=== PATIENT | female | born 1985 | race Caucasian/White ===

== ENCOUNTER 2017-01-15 23:37 | Emergency (ER) | payer MEDICAID ==
[~2017-01-15] VITALS: Ht 157.5 cm; Wt 139.3 kg
[~2017-01-15 23:37] MED LIST: ACTOS; CIPRO500 MG; ELTROXIN0.3 MG; FERROUS SULFAT325 MG PO; FOLATE1 MG PO; IRON65 M2 PO; LEVOTHYROXINE0.3 M1; METFORMIN1000 MG; MOTRIN800 MG PO; NOVOLIN N100 U/ML SUBQ; NOVOLIN R100 U/ML SUBQ; PRENATAL VITAMI1 T10 PO; SYNTHROID0.025 MG PO; [UNRECOGNIZED DRUG - OTHER]; glipizide
[2017-01-16 00:02] VITALS: BP 100/71
--- NOTE | 2017-01-16 00:09 | NUR ---
PT TAKEN TO OF
--- NOTE | 2017-01-16 00:10 | NUR ---
Dr. Hill evaluating patient
[2017-01-16] MEDS ORDERED: cefTRIAXone 2,000 MG in DEXTROSE 5% 100 ML IV ONE (00:15)
[2017-01-16] MEDS ORDERED: KETOROLAC 30 MG/ML VIAL IVP ONE (00:15)
--- NOTE | 2017-01-16 00:15 | NUR ---
PATIENT PRESENTS TO ED WITH RIGHT EAR PAIN . PT STATES HAVING PAIN X2 DAYS . DENIES N/V/D; SKIN IS PINK/WARM/DRY; AAOX4 WITH EVEN AND STEADY GAIT; LUNGS CLEAR BL; HR EVEN AND REGULAR; PT DENIES ANY FEVER, CP, SOB, OR COUGH AT THIS TIME; PATIENT STATES PAIN OF 10/10 AT THIS TIME; VSS; PATIENT POSITIONED FOR COMFORT; HOB ELEVATED; BEDRAILS UP X2; BED DOWN. ER MD MADE AWARE OF PT STATUS.
--- NOTE | 2017-01-16 00:15 | NUR ---
PT MOVED TO BED 8
[2017-01-16] MEDS ORDERED: cefTRIAXone 2,000 MG VIAL ONE (00:52)
--- NOTE | 2017-01-16 02:15 | NUR ---
PATIENT IN BED, SLEEPING. NO RESPIRATORY DISTRESS, SOB, OR DISCOMFORT. PATIENT POSITIONED FOR COMFORT, SIDE RAILS UP X2, BED IN LOWEST POSITION. WILL CONTINUE TO MONITOR.
[2017-01-16 02:25] VITALS: BP 102/67
--- NOTE | 2017-01-16 02:25 | NUR ---
Patient discharged with v/s stable. Written and verbal after care instructions given and explained BY DR PRINCE. Patient alert, oriented and verbalized understanding of instructions. Ambulatory with steady gait. All questions addressed prior to discharge. ID band removed. Patient advised to follow up with PMD. Rx of CIPROFLOXACIN AND NAPROSYN given. Patient educated on indication of medication including possible reaction and side effects. Opportunity to ask questions provided and answered.
== END 2017-01-16 02:25 | disposition home or self-care (01) ==
LOC: MED 23:37
PROC: 3E033GC Introduction of Other Therapeutic Substance into Peripheral Vein, Percutaneous Approach (ICD-10-PCS; principal; 2017-01-15)
DX: H66.92 Otitis media, unspecified, left ear (principal); E11.9 Type 2 diabetes mellitus without complications; E07.9 Disorder of thyroid, unspecified; E66.9 Obesity, unspecified; Z68.43 Body mass index [BMI] 50.0-59.9, adult
CPT/HCPCS: 87070; 96365; 96375; 99284; J0696; J1885

== ENCOUNTER 2018-08-02 18:56 | Inpatient (IN) | payer MEDICAID ==
[~2018-08-02] VITALS: Ht 157.5 cm; Wt 156.0 kg
[~2018-08-02 18:56] MED LIST changes: +CIPR500T4; -CIPRO500 MG; -ELTROXIN0.3 MG; -FERROUS SULFAT325 MG PO; -FOLATE1 MG PO; -IRON65 M2 PO; -LEVOTHYROXINE0.3 M1; +METF100028; -METFORMIN1000 MG; -MOTRIN800 MG PO; +NOVN SUBQ; -NOVOLIN N100 U/ML SUBQ; -NOVOLIN R100 U/ML SUBQ; +NOVR SUBQ; -PRENATAL VITAMI1 T10 PO; +SYN.025 PO; -SYNTHROID0.025 MG PO; +[UNRECOGNIZED DRUG - CODE]; +[UNRECOGNIZED DRUG - CODE]
[2018-08-02 19:03] VITALS: BP 120/69
--- NOTE | 2018-08-02 19:05 | NUR ---
32 Y/O BIB SELF W/C/O ABD PAIN X 3 WEEKS IN THE R UPPER QUADRANT THAT RADIATES TO R FLANK AREA. PT REPORTS HX OF GALLSTONES, DYSURIA. PT DENIES HEMATURIA. REPORTS N/V, DENIES DIARRHEA AND CONSTIPATION. SKIN IS INTACT, PINK/WARM/DRY; AAOX4, PERRL, WITH EVEN AND STEADY GAIT; LUNGS CLEAR BL, BREATHING UNLABORED; HR EVEN AND REGULAR, BL PERIPHERAL PULSES PRESENT; BS ACTIVE X4, NO TENDERNESS TO PALPATION, NO HEPATOSPLENOMEGALLY PALPATED, RESONANT TO PERCUSSION; PT DENIES ANY FEVER, CP, SOB, OR COUGH AT THIS TIME; PT STATES 10/10 PAIN AT THIS TIME; VSS; PATIENT POSITIONED FOR COMFORT; HOB ELEVATED; BEDRAILS UP X2; BED DOWN. hx gallstones, dm, hypothyroidism rx on file
--- NOTE | 2018-08-02 20:02 | NUR ---
Dr. Hill evaluating patient at bedside.
[2018-08-02] MEDS ORDERED: NACL 0.9% 1,000 ML IV ONE ×2 (20:10→22:20)
[2018-08-02] MEDS ORDERED: ONDANSETRON 4 MG/2 ML VIAL IVP ONE (20:10)
[2018-08-02] MEDS ORDERED: MORPHINE SULFATE 4 MG/ML SYR IVP ONE ×2 (20:10→22:05)
--- NOTE | 2018-08-02 20:16 | NUR ---
Ultrasound at bedside.
--- NOTE | 2018-08-02 20:33 | NUR ---
US AT BEDSIDE
[2018-08-02 20:45] LABS: BASOPHILS # (AUTO) 0.1 K/uL (0.00-0.22); BASOPHILS % (AUTO) 0.7 % (0.0-2.0); EOSINOPHILS # (AUTO) 0.1 K/uL (0-0.4); EOSINOPHILS % (AUTO) 0.8 % (0.0-4.0); HEMATOCRIT 37.1 % (36-48); LYMPHOCYTES # (AUTO) 2.6 K/uL (2.5-16.5); LYMPHOCYTES % (AUTO) 19.9 % (20.5-51.1); MEAN CORPUSCULAR HEMOGLOBIN 26 pg (27-31); MEAN CORPUSCULAR HGB CONC 32 g/dL (33-37); MEAN CORPUSCULAR VOLUME 81.3 fL (80-94); MONOCYTES % (AUTO) 7.9 % (1.7-9.3); NEUTROPHILS # (AUTO) 9.2 K/uL (1.8-7.7); NEUTROPHILS % (AUTO) 70.7 % (42.2-75.2); PLATELET COUNT (AUTO) 309 K/uL (140-450); RED BLOOD CELL COUNT(AUTO) 4.56 MIL/uL (4.20-5.40); RED CELL DISTRIBUTION WIDTH 14.5 % (11.6-13.7)
[2018-08-02 20:46] LABS: BILIRUBIN,URINE NEGATIVE (NEGATIVE); BLOOD, URINE NEGATIVE (NEGATIVE); COLOR,URINE YELLOW (YELLOW); LEUKOCYTE ESTERASE ,URINE NEGATIVE (NEGATIVE); NITRITE, URINE NEGATIVE (NEGATIVE); UGLUCOSE 3+ (NEGATIVE)
--- NOTE | 2018-08-02 20:56 | NUR ---
PT RESTING IN BED COMFORTABLY. NAD NOTED
[2018-08-02 20:58] LABS: ANION GAP 11.2 (8-16); CARBON DIOXIDE 30.7 mmol/L (21-32); CREATININE 1.3 mg/dL (0.6-1.3); POTASSIUM 3.9 mmol/L (3.5-5.1)
[2018-08-02 21:04] LABS: ALBUMIN 2.8 g/dL (3.4-5.0); TOTAL BILIRUBIN 0.1 mg/dL (0.0-1.0)
[2018-08-02 21:50] LABS: APPEARANCE,URINE CLEAR (CLEAR)
--- NOTE | 2018-08-02 22:21 | NUR ---
DR. PRINCE MADE AWRE THAT PTS B/P 95/56. NO S/S OF DISTRESS NOTED
[2018-08-02] MEDS ORDERED: ZOLPIDEM 5 MG TAB PO PRN (22:30)
[2018-08-02] MEDS ORDERED: DEXTROSE 50% 50 ML SYR IVP PRN (22:30)
[2018-08-02] MEDS ORDERED: traMADol 50 MG TAB PO PRN (22:30)
[2018-08-02] MEDS ORDERED: LORazepam 2 MG/ML VIAL IM/IVP PRN (22:30)
[2018-08-02] MEDS ORDERED: DOCUSATE SODIUM 100 MG GELCAP PO PRN (22:30)
[2018-08-02] MEDS ORDERED: ACETAMINOPHEN 325 MG TAB PO PRN (22:30)
[2018-08-02] MEDS ORDERED: ONDANSETRON 4 MG/2 ML VIAL IM/IVP PRN (22:30)
--- NOTE | 2018-08-02 22:39 | NUR ---
XRAY AT BEDSIDE
[2018-08-02] MEDS ORDERED: GABA400C PO ×2 (22:43→23:22)
--- NOTE | 2018-08-02 22:55 | NUR ---
PT ARRIVED ON UNIT VIA GURNEY WITH ER NURSE. PT ABLE TO AMBULATE FROM GURNEY TO BED. PT IN STABLE CONDITION. PT IS AAOX4. PT IS ON RA WITH RESPIRATIONS EVEN AND UNLABORED. IV ACCESS IN L AC 20G WITH FLUID BOLUS CURRENTLY INFUSING. IV IS PATENT AND INTACT. PT SKIN IS INTACT. PT CURRENTLY C/O PAIN 12/31. PT STATES IT IS TOLERABLE AT THIS TIME. MRSA SWAB COLLECTED. ORIENTED PT TO ROOM AND USE OF CALL LIGHT. BED IS LOCKED, LOW POSITION WITH SIDE RAILS UP X2. BOARD UPDATED. CALL LIGHT IS WITHIN REACH. MD ARRIVED AT BEDSIDE TO SPEAK WITH AND EXAM PT. WILL CONTINUE TO MONITOR PT.
--- NOTE | 2018-08-02 23:04 | NUR ---
Patient will be admitted to care of DR. MAR. Admited to TELE. Will go to room 105B. Belongings list completed. Report to KRISTI CEDILLO.
[2018-08-02] MEDS ORDERED: LEVO0.2T19 PO (23:22)
[2018-08-02] MEDS ORDERED: INSU100I7 SQ (23:22)
[2018-08-02] MEDS ORDERED: APID SUBQ (23:22)
[2018-08-02 23:47] LABS: PROTHROMBIN TIME 9.4 secs (10.8-13.4)
[2018-08-02 23:51] LABS: AMYLASE 40 U/L (25-115); CHOL/HDL RATIO 3.2 (1-4.5); HDL CHOLESTEROL 51 mg/dL (40-60); LDL (CALC) 80 mg/dL (60-100); LIPASE 104 U/L (73-393); MAGNESIUM 1.7 mg/dL (1.8-2.4); THYROID STIMULATING HORMONE 9.94 uIU/mL (0.34-3.74); TRIGLYCERIDES 155 mg/dL (30-150)
[2018-08-02] MEDS ORDERED: cefTRIAXone 1,000 MG VIAL ONE (23:57)
[2018-08-03] VITALS: BP 120/68
--- NOTE | 2018-08-03 | NUR ---
LAB CALLED TO REPORT LACTIC ACID RESULT OF 2.1. DR MÁRQUEZ IS AWARE. WILL CONTINUE TO MONITOR PT.
[2018-08-03 00:06] LABS: BARBITURATE, URINE NEG. ng/ml (NEG <=200); BENZODIAZEPINE, URINE NEG. ng/mL (NEG <=200); CANNABINOID, URINE NEG. ng/mL (NEG <=50); COCAINE, URINE NEG. ng/mL (NEG <=300); OPIATE, URINE NEG. ng/mL (NEG <=2000); PHENCYCLIDINE SCREEN,URINE NEG. ng/mL (NEG <=25)
[2018-08-03] MEDS: DEXT 5% / NACL 0.45% 1,000 ML IV SCH ×3 (00:08→13:01)
--- NOTE | 2018-08-03 00:08 | NUR ---
SCHEDULED ANTIBIOTIC STARTED. PT IS TOLERATING WELL. NO SIGNS OR SYMPTOMS OF DISTRESS. WILL CONTINUE TO MONITOR.
[2018-08-03] MEDS: MORPHINE SULFATE 4 MG/ML SYR IVP PRN ×3 (01:29→20:02)
--- NOTE | 2018-08-03 01:29 | NUR ---
PT C/O PAIN. MORPHINE GIVEN. PT TOLERATED WELL. WILL CONTINUE TO MONITOR.
--- NOTE | 2018-08-03 01:55 | NUR ---
SPOKE WITH ROMULO FROM NUCLEAR MEDICINE. SHE IS PLANNING TO DO THE ORDERED HIDA SCAN AROUND 1000. PER HER REQUEST, IN ORDER TO COMPLETE THE SCAN PT NEEDS TO REMAIN NPO ORDERED AND NO OPIATES. WILL INFORM MD AND ENDORSE TO AM NURSE.
--- NOTE | 2018-08-03 02:29 | NUR ---
PT NOW RESTING COMFORTABLY IN BED. NO SIGNS OR SYMPTOMS OF DISTRESS. WILL CONTINUE TO MONITOR.
[2018-08-03] MEDS ORDERED: MAGNESIUM OXIDE 400 MG TAB PO SCH ×2 (03:00→22:30)
[2018-08-03] MEDS ORDERED: INFLUENZA VIRUS VACCINE QUAD 0.5 ML SYR IMVAC SCH (03:00)
--- NOTE | 2018-08-03 03:54 | NUR ---
ADMINISTERED SCHEDULED MEDICATION. PT TOLERATED WELL. PT UP TO BATHROOM, STANDBY ASSIST. PT STEADY, NO REPORTS OF DIZZINESS. PT NOW BACK IN BED. NO SIGNS OR SYMPTOMS OF DISTRESS.
[2018-08-03 04:00] VITALS: BP 114/55
[2018-08-03] MEDS: metroNIDAZOLE 500 MG/NS PREMIX 100 ML IV SCH ×3 (04:20→21:21)
--- NOTE | 2018-08-03 04:20 | NUR ---
ADMINISTERED SCHEDULED ANTIBIOTIC. PT TOLERATING WELL. WILL CONTINUE TO MONITOR.
[2018-08-03] MEDS ORDERED: INFLUENZA VIRUS VACCINE QUAD 0.5 ML SYR IMVAC PRN (05:10)
[2018-08-03] MEDS: BLOOD GLUCOSE MONITORING 1 DEV DEV FS SCH ×4 (05:59→21:00)
[2018-08-03] MEDS: INSULIN LISPRO SLIDING SCALE 100 UNITS/ML VIAL SUBQ PRN ×4 (06:04→21:20)
--- NOTE | 2018-08-03 06:04 | NUR ---
PT C/O PAIN. TYLENOL GIVEN. BS CHECKED, 221. INSULIN COVERAGE GIVEN PER MD ORDERS. PT TOLERATED WELL. WILL CONTINUE TO MONITOR.
[2018-08-03 06:24] LABS: BASOPHILS % (AUTO) 0.3 % (0.0-2.0); EOSINOPHILS # (AUTO) 0.1 K/uL (0-0.4); EOSINOPHILS % (AUTO) 1.2 % (0.0-4.0); HEMATOCRIT 31.6 % (36-48); HEMOGLOBIN 10.4 g/dL (12.0-16.0); LYMPHOCYTES # (AUTO) 2.5 K/uL (2.5-16.5); LYMPHOCYTES % (AUTO) 25.7 % (20.5-51.1); MEAN CORPUSCULAR HEMOGLOBIN 27 pg (27-31); MEAN CORPUSCULAR HGB CONC 33 g/dL (33-37); MEAN CORPUSCULAR VOLUME 81.7 fL (80-94); MONOCYTES # (AUTO) 0.7 K/uL (0.8-1.0); MONOCYTES % (AUTO) 7.2 % (1.7-9.3); NEUTROPHILS # (AUTO) 6.4 K/uL (1.8-7.7); NEUTROPHILS % (AUTO) 65.6 % (42.2-75.2); PLATELET COUNT (AUTO) 249 K/uL (140-450); RED BLOOD CELL COUNT(AUTO) 3.87 MIL/uL (4.20-5.40); RED CELL DISTRIBUTION WIDTH 14.6 % (11.6-13.7); WHITE BLOOD COUNT (AUTO) 9.8 K/uL (4.8-10.8)
--- NOTE | 2018-08-03 07:18 | NUR ---
ENDORSED PT TO DAY SHIFT NURSE FOR CONTINUITY OF CARE. PT IN STABLE CONDITION.
--- NOTE | 2018-08-03 07:19 | NUR ---
RECEIVED REPORT FROM PM NURSE AT BEDSIDE. PT LYING ON HER BED. DUE FOR HIDA SCAN THIS MORNING PER PM NURSE. PT IS NPO EXCEPT MEDS. PT HAS RT AC 20 G, IVF 0.5 D5% INFUSING AT 126ML/HR . PT AOX4, SELF AMBULATORY, SKIN IS INTACT. UPDATED BOARD AND INTRODUCED SELF TO PT. PLACED CALL LIGHT WITHIN PT REACH. INFORMED HER TO USE CALL LIGHT FOR ANY HELP. VERBALIZED UNDERSTANDING. WILL CONTINUE TO MONITOR PT.
[2018-08-03 07:22] LABS: ANION GAP 11.1 (8-16); CARBON DIOXIDE 25.6 mmol/L (21-32); CREATININE 0.9 mg/dL (0.6-1.3); POTASSIUM 3.7 mmol/L (3.5-5.1)
[2018-08-03 07:36] LABS: MAGNESIUM 1.6 mg/dL (1.8-2.4); PHOSPHORUS 4.9 mg/dL (2.5-4.9)
[2018-08-03 07:49] VITALS: BP 106/62
--- NOTE | 2018-08-03 08:25 | NUR ---
PATIENT HAS BEEN SCREENED AND CATEGORIZED HIGH NUTRITION RISK. PATIENT WILL BE SEEN WITHIN 1-2 DAYS OF ADMISSION. 08/03/18 08/04/[address]
[2018-08-03] MEDS ORDERED: MORPHINE SULFATE 4 MG/ML SYR IVP PRN (09:20)
--- NOTE | 2018-08-03 09:24 | NUR ---
PT WENT FOR HIDA SCAN WITH NUCLEAR [employer] TECH ON WHEEL CHAIR.. IV SITE PATENT. PT IN STABLE CONDITION.
--- NOTE | 2018-08-03 09:35 | NUR ---
ADMISSION CHART REVIEW DONE FAXED INITIAL REVIEW TO [facility] [phone] CALLED JOSÉ MIGUEL AND SHE SAID THE PATIENT IS HERS AND FAXED REVIEW. [place] [phone]
[2018-08-03] MEDS ORDERED: INSU100I7 SQ (10:19)
[2018-08-03] MEDS ORDERED: BACL10TA4 PO (10:22)
[2018-08-03] MEDS ORDERED: TRAZ-343 PO (10:24)
--- NOTE | 2018-08-03 10:30 | NUR ---
ADMINISTERED 2 MG MORPHINE TO PT IN HIDA SCAN ROOM, PT LYING COMFORTABLY IN ROOM . NUCLEAR MED TECH IN ROM. PT TO BE BROUGHT TO ROOM AFTER PROCEDURE IS DONE BY NUCLEAR MED TECH.
--- NOTE | 2018-08-03 11:23 | NUR ---
PT BACK TO ROOM. USING RESTROOM FAMILY MEMBER AT BEDSIDE. WILL CONTINUE TO MONITOR PT.
--- NOTE | 2018-08-03 11:27 | NUR ---
PER REQUEST OF LEOBARDO GARCIA, FAXED INITIAL REVIEW TO LEOBARDO GARCIA TO [phone] REF NUMBER [id number] PHONE FOR [phone]
[2018-08-03] MEDS: LACTOBACILLUS RHAMNOSUS GG 1 EACH CAP PO SCH (11:30)
[2018-08-03 12:00] VITALS: BP 116/55
--- NOTE | 2018-08-03 13:05 | NUR ---
CHECKED ON PT. LYING ON HER BED. PT AOX4, COMFORTABLE AND SPEAKING TO FAMILY AT BEDSIDE. NO DISTRESS NOTED. ADMINISTERED MEDS ORDERED. TOLERATED WELL. INFORMED PT THAT SHE STILL IS O NPO, NOT TO DRINK OR EAT ANYTHING UNTIL NEW DIET ORDER HAS BEEN RECEIVED. VERBALIZED UNDERSTANDING OF TEACHING. DR LANDRY AWARE AND ORDERED PT TO REMAIN NPO. STATE THAT DR BARNHART AWARE OF PT HIDA SCAN TEST RESULT, WAITING FOR HIS RESPONSE. ALL SAFETY MEASURE IN PLACE. WILL CONTINUE TO MONITOR PT.
--- NOTE | 2018-08-03 15:11 | NUR ---
ADMINISTERED MORPHINE TO PT FOR PAIN 05/02. STATES ITS GETTING WORSE. PT LYING ON HER BED. WILL REASSESS PAIN LEVEL IN ONE HOUR. WILL CONTINUE TO MONITOR PT.
[2018-08-03 16:00] VITALS: BP 103/86
--- NOTE | 2018-08-03 18:30 | NUR ---
CHECKED WITH PT. COMBUSTION ANALYST REPORTED PTHAVING TRAY AT HER BEDSIDE. PER DR LOVE, PT ON [facility] 60GM DIET, WILL PUT NEW DIET ORDER. OFFERED PT ANDERS . PT SITTING ON HER BED, EATING HER FOOD. NO SIGN OF DISTRESS NOTED. WILL CONTINUE TO MONITOR PT.
--- NOTE | 2018-08-03 19:20 | NUR ---
ENDORSED PT TO PM NURSE AT BEDSIDE FOR CONTINUITY OF CARE. PT IN STABLE CONDITION
--- NOTE | 2018-08-03 19:21 | NUR ---
RECEIVED SBAR REPORT FROM DAY SHIFT NURSE. PT LAYING IN BED. IV ON R AC 20GG INFUSING. PATIENT IS A&O X4. PT WITH NO SOB IS ON ROOM AIR. CARE PLAN REVIEWED WITH PATIENT SHE VERBALIZED UNDERSTANDING. ALL SAFETY MEASURES IN PLACE. CALL LIGHT IS WITHIN REACH. WILL CONTINUE TO MONITOR.
[2018-08-03 20:00] VITALS: BP 121/68
--- NOTE | 2018-08-03 20:02 | NUR ---
PT COMPLAINS OF ABD PAIN. MORPHINE GIVEN PER ORDERS. NO SOB NOTED. PT IN STABLE CONDITION. CALL LIGHT WITHIN REACH WILL CONTINUE TO MONITOR.
[2018-08-03] MEDS ORDERED: INSULIN LANTUS 100 UNITS/ML 10 ML VIAL SUBQ SCH (21:00)
--- NOTE | 2018-08-03 21:25 | NUR ---
DUE MEDICATIONS GIVEN PT TOLERATED WELL. VITAL SIGNS WITHIN NORMAL LIMITS. CALL LIGHT WITHIN NORMAL LIMITS WILL CONTINUE TO MONITOR.
[2018-08-03] MEDS ORDERED: NACL 0.9% 1,000 ML IV SCH (22:40)
[2018-08-04] VITALS: BP 118/53
[2018-08-04] MEDS ORDERED: INFLUENZA VIRUS VACCINE QUAD 0.5 ML SYR IMVAC PRN (00:10)
[2018-08-04] MEDS: HYDROcodone/APAP 5/325 MG 1 TAB TAB PO PRN ×2 (00:41→08:20)
--- NOTE | 2018-08-04 00:41 | NUR ---
PT COMPLAINS OF PAIN. 04/02 NORCO GIVEN PT TOLERATED WILL. CALL LIGHT WITHIN REACH. WILL CONTINUE TO MONITOR.
--- NOTE | 2018-08-04 01:00 | NUR ---
PT SLEEPING IN BED. NO DISTRESS NOTED. CALL LIGHT WITHIN REACH.
[2018-08-04 04:00] VITALS: BP 119/52
--- NOTE | 2018-08-04 04:00 | NUR ---
VITAL SIGNS WITHIN NORMAL LIMITS. PT DENIES PAIN AT THIS TIME. NO DISTRESS NOTED. ALL SAFETY MEASURES IN PLACE WILL CONTINUE TO MONITOR.
[2018-08-04] MEDS: metroNIDAZOLE 500 MG/NS PREMIX 100 ML IV SCH (04:43)
[2018-08-04 06:06] LABS: BASOPHILS % (AUTO) 0.4 % (0.0-2.0); EOSINOPHILS # (AUTO) 0.1 K/uL (0-0.4); EOSINOPHILS % (AUTO) 1.6 % (0.0-4.0); HEMATOCRIT 32.6 % (36-48); HEMOGLOBIN 10.7 g/dL (12.0-16.0); LYMPHOCYTES # (AUTO) 2.5 K/uL (2.5-16.5); LYMPHOCYTES % (AUTO) 34.2 % (20.5-51.1); MEAN CORPUSCULAR HEMOGLOBIN 27 pg (27-31); MEAN CORPUSCULAR HGB CONC 33 g/dL (33-37); MEAN CORPUSCULAR VOLUME 81.6 fL (80-94); MONOCYTES # (AUTO) 0.5 K/uL (0.8-1.0); MONOCYTES % (AUTO) 6.2 % (1.7-9.3); NEUTROPHILS # (AUTO) 4.3 K/uL (1.8-7.7); NEUTROPHILS % (AUTO) 57.6 % (42.2-75.2); PLATELET COUNT (AUTO) 249 K/uL (140-450); RED CELL DISTRIBUTION WIDTH 14.3 % (11.6-13.7); WHITE BLOOD COUNT (AUTO) 7.4 K/uL (4.8-10.8)
[2018-08-04] MEDS: BLOOD GLUCOSE MONITORING 1 DEV DEV FS SCH (06:13)
[2018-08-04] MEDS: INSULIN LISPRO SLIDING SCALE 100 UNITS/ML VIAL SUBQ PRN (06:13)
--- NOTE | 2018-08-04 06:25 | NUR ---
PT SLEEPING COMFORTABLY IN BED. NO DISTRESS NOTED AT THIS TIME. BED ON LOWEST POSITION CALL LIGHT WITHIN REACH.
[2018-08-04 06:43] LABS: ANION GAP 6.9 (8-16); CARBON DIOXIDE 28.8 mmol/L (21-32); CREATININE 0.7 mg/dL (0.6-1.3); POTASSIUM 3.7 mmol/L (3.5-5.1)
[2018-08-04 06:45] LABS: MAGNESIUM 1.8 mg/dL (1.8-2.4); PHOSPHORUS 4.1 mg/dL (2.5-4.9)
[2018-08-04] MEDS ORDERED: LEVOTHYROXINE 0.1 MG TAB PO SCH (07:05)
--- NOTE | 2018-08-04 07:15 | NUR ---
ENDORSED PT TO DAY SHIFT NURSE VIA SBAR. PT IN STABLE CONDITION. ALL SAFETY MEASURES IN PLACE.
--- NOTE | 2018-08-04 07:20 | NUR ---
RECEIVED REPORT FROM VIDEO GAME PROGRAMMER NURSE, PT IS SLEEPING IN BED BUT EASILY AWAKEN, PT IS AAOX4, AMBULATORY, IV IS ON THE RIGHT AC, PATENT, INTACT, FLUSHING WELL, NO S/S OF RESPIRATORY DISTRESS OR DISCOMFORT NOTED, SKIN IS INTACT, DISCUSSED PLAN OF CARE WITH PT, PT VERBALIZED UNDERSTANDING, CALL LIGHT IS WITHIN REACH, WILL CONTINUE TO MONITOR.
[2018-08-04 07:21] LABS: T4 (THYROXINE) 9.6 ug/dL (4.5-12.0)
[2018-08-04 08:00] VITALS: BP 114/78
[2018-08-04] MEDS ORDERED: LEVOTHYROXINE PO SCH ×2 (08:00)
[2018-08-04] MEDS: LACTOBACILLUS RHAMNOSUS GG 1 EACH CAP PO SCH (08:11)
[2018-08-04] MEDS ORDERED: DOCU-299 PO (08:21)
[2018-08-04] MEDS ORDERED: ACET-2869 PO (08:21)
[2018-08-04] MEDS ORDERED: ACET-2858 PO (08:42)
--- NOTE | 2018-08-04 10:00 | NUR ---
CM NOTE CONSULTATION REPORT AND DISCHARGE SUMMARY FAXED TO LEOBARDO GARCIA [phone] PH# [phone] AND TO [facility] [phone] N[place] PH# [phone].
--- NOTE | 2018-08-04 11:10 | NUR ---
DISCHARGE INSTRUCTIONS GIVEN, IV REMOVED, CATHETER TIP INTACT, ID WRIST BANDS ALSO REMOVED. PT STABLE UPON DISCHARGE.
[2018-08-05] MEDS ORDERED: LEVOTHYROXINE PO SCH ×2 (06:30)
== END 2018-08-04 11:10 | disposition home or self-care (01) ==
LOC: MED 18:56 → MTU 22:29
PROVIDERS: ADMIT General Practice; ATTEND General Practice
PROC: 3E0234Z Introduction of Serum, Toxoid and Vaccine into Muscle, Percutaneous Approach (ICD-10-PCS; principal; 2018-08-04)
DX: K80.20 Calculus of gallbladder without cholecystitis without obstruction (principal); N17.0 Acute kidney failure with tubular necrosis; E43 Unspecified severe protein-calorie malnutrition; E11.40 Type 2 diabetes mellitus with diabetic neuropathy, unspecified; R65.10 Systemic inflammatory response syndrome (SIRS) of non-infectious origin without acute organ dysfunction; E11.65 Type 2 diabetes mellitus with hyperglycemia; E66.01 Morbid (severe) obesity due to excess calories; K76.0 Fatty (change of) liver, not elsewhere classified; E03.9 Hypothyroidism, unspecified; E83.42 Hypomagnesemia; E78.1 Pure hyperglyceridemia; F43.9 Reaction to severe stress, unspecified; Z79.899 Other long term (current) drug therapy; Z79.4 Long term (current) use of insulin; Z83.3 Family history of diabetes mellitus; Z82.49 Family history of ischemic heart disease and other diseases of the circulatory system; Z87.891 Personal history of nicotine dependence; Z23 Encounter for immunization; Z68.44 Body mass index [BMI] 60.0-69.9, adult
CPT/HCPCS: 36415; 71045; 76705; 78445; 80048; 80053; 80305; 81003; 81025; 82140; 82150; 82948; 83036; 83605; 83690; 83735; 83880; 84100; 84134; 84436; 84443; 85025; 85610; 85730; 87040; 87081; 87086; 90658; 93005; 96361; 96374; 96375; 99285; G0482; J0696; J1815; J2270; J2405; J3490; J7030; J7060; Q0092

== ENCOUNTER 2019-07-30 19:40 | Inpatient (IN) | payer MEDICAID ==
[~2019-07-30] VITALS: Ht 160 cm; Wt 172.4 kg
[~2019-07-30 19:40] MED LIST changes: -ACTOS; +BACL10TA4 PO; -CIPR500T4; +DOCU-299 PO; +HYDR-5092 PO; +INSU100I7 SQ; +LEVO0.2T19 PO; -METF100028; -NOVN SUBQ; -NOVR SUBQ; -SYN.025 PO; +TRAZ-343 PO; -[UNRECOGNIZED DRUG - CODE]; -[UNRECOGNIZED DRUG - CODE]; -[UNRECOGNIZED DRUG - OTHER]; -glipizide
[2019-07-30 20:11] VITALS: BP 129/64
--- NOTE | 2019-07-30 20:23 | NUR ---
PT AMBULATED TO ER BED 06
--- NOTE | 2019-07-30 20:23 | NUR ---
Pt placed on 5150 hold for danger to self. Wayne Wolff EMT at bedside. Continue to monitor.
--- NOTE | 2019-07-30 20:45 | NUR ---
33Y FEMALE, BIB SISTER TO ED DUE TO SUICIDAL IDEATION, PER REPORT INGESTED 20 SLEEPING PILLS ABOUT 1HR AGO, DROWSY BUT RESPONDS TO QUESTIONS, PT AAO TO NAME, PLACE, TIME AND LOCATION. ASKED PATIENT WHAT MEDICATIONS SHE TOOK BUT UNABLE TO PROVIDE CORRECT NAME, PT REPORTED HAVING RT LOWER ABD PAIN THAT RADIATES TO BACK, SHE ALSO REPORTED GOING TO ED [place] ABOUT 1 WEEK AGO AND WAS GIVEN PAIN MEDICATION AND ANTIBIOTICS BUT UNABLE TO NAME THE MEDICATIONS PRESCRIBED AT THIS TIME. EDMD MADE AWARE, 1:1 SITTER AT BEDSIDE, BED LOCKED IN LOWEST POSITION, SIDERAILS UPX2, WILL CONTINUE TO MONITOR CLOSELY.
--- NOTE | 2019-07-30 21:28 | NUR ---
POISON CONTROL CALLED SPOKE WITH NEIL , REPORTED PT CONDITION AND TURN OF EVENTS, WITH RECOMMENDATIONS TO CHECK FOR LABS: TYLENOL, ASPIRIN, ETOH, CBC, CMP, THYROID PANEL AND EKG, EDMD MADE AWARE, WILL CONTINUE TO MONITOR CLOSELY.
[2019-07-30 21:35] LABS: BASOPHILS # (AUTO) 0.1 K/uL (0.00-0.22); BASOPHILS % (AUTO) 0.8 % (0.0-2.0); EOSINOPHILS # (AUTO) 0.1 K/uL (0-0.4); EOSINOPHILS % (AUTO) 0.5 % (0.0-4.0); HEMATOCRIT 39.2 % (36-48); HEMOGLOBIN 12.8 g/dL (12.0-16.0); LYMPHOCYTES # (AUTO) 2.5 K/uL (2.5-16.5); LYMPHOCYTES % (AUTO) 25.1 % (20.5-51.1); MEAN CORPUSCULAR HEMOGLOBIN 28 pg (27-31); MEAN CORPUSCULAR HGB CONC 33 g/dL (33-37); MEAN CORPUSCULAR VOLUME 86.3 fL (80-94); MONOCYTES # (AUTO) 0.5 K/uL (0.8-1.0); MONOCYTES % (AUTO) 4.8 % (1.7-9.3); NEUTROPHILS # (AUTO) 6.9 K/uL (1.8-7.7); NEUTROPHILS % (AUTO) 68.8 % (42.2-75.2); PLATELET COUNT (AUTO) 258 K/uL (140-450); RED BLOOD CELL COUNT(AUTO) 4.55 MIL/uL (4.20-5.40); WHITE BLOOD COUNT (AUTO) 10.1 K/uL (4.8-10.8)
[2019-07-30 22:10] LABS: ANION GAP 12.6 (8-16); CARBON DIOXIDE 26.2 mmol/L (21-32); CREATININE 1.2 mg/dL (0.6-1.3); POTASSIUM 3.8 mmol/L (3.5-5.1); TOTAL BILIRUBIN 0.4 mg/dL (0.0-1.0)
[2019-07-30 22:14] LABS: SALICYLATE < 2.8 mg/dL (2.8-20.0)
[2019-07-30] MEDS ORDERED: INSULIN REGULAR, HUMAN 100 UNIT/ML VIAL IVP ONE (22:15)
[2019-07-30] MEDS ORDERED: NACL 0.9% 1,000 ML IV ONE (22:15)
[2019-07-30] MEDS ORDERED: ACETYLCYSTEINE 20% (200 MG/ML) 200 MG/ML VIAL PO ONE (22:20)
--- NOTE | 2019-07-30 22:30 | NUR ---
PT SPEAKING WITH TELEPSYCH AT THIS TIME
--- NOTE | 2019-07-30 22:44 | NUR ---
Spoke to Dr. Starr. He states d/t pt's condition and continued desire to harm self, it is too soon to release the 5150 hold. Pt to remain on 5150 hold. Alternating sitters at bedside, Wade Funes. Continue to monitor. Addendum: 07/31/19 at 0500 by MED Spoke to Dr. Starr from [employer]. He states d/t pt's condition and continued desire to harm self, it is too soon to release the 5150 hold. Pt to remain on 5150 hold. Alternating sitters at bedside, Wade Funes. Continue to monitor.
[2019-07-30] MEDS ORDERED: ACETYLCYSTEINE 20% (200 MG/ML) 200 MG/ML VIAL ONE (22:51)
[2019-07-31] VITALS (10 sets, daily range): BP systolic 90–123; BP diastolic 53–92
[2019-07-31] MEDS ORDERED: ACETYLCYSTEINE 20% (200 MG/ML) 200 MG/ML VIAL PO SCH
--- NOTE | 2019-07-31 | NUR ---
PT IN BED ASLEEP, EASY TO AROUSE, ABLE TO MAKE NEEDS KNOWN, VSS AT THIS TIME, WILL CONTINUE TO MONITOR CLOSELY. 1:1 SITTER AT BEDSIDE.
[2019-07-31 00:13] LABS: BARBITURATE, URINE NEG. ng/ml (NEG <=200); BENZODIAZEPINE, URINE NEG. ng/mL (NEG <=200); CANNABINOID, URINE NEG. ng/mL (NEG <=50); COCAINE, URINE NEG. ng/mL (NEG <=300); OPIATE, URINE NEG. ng/mL (NEG <=2000); PHENCYCLIDINE SCREEN,URINE NEG. ng/mL (NEG <=25)
[2019-07-31] MEDS ORDERED: INSULIN REGULAR, HUMAN 100 UNIT/ML VIAL IVP ONE (01:00)
[2019-07-31] MEDS ORDERED: NACL 0.9% 1,000 ML IV ONE (01:00)
--- NOTE | 2019-07-31 02:00 | NUR ---
PATIENT IN BED ASLEEP, EASY TO AROUSE, ABLE TO MAKE NEEDS KNOWN, VSS AT THIS TIME, WILL CONTINUE TO MONITOR CLOSELY, 1:1 SITTER AT BEDSIDE.
[2019-07-31] MEDS ORDERED: ACETYLCYSTEINE 20% (200 MG/ML) 200 MG/ML VIAL ONE ×2 (03:25→03:38)
--- NOTE | 2019-07-31 04:00 | NUR ---
PT GIVEN ACETYLCYSTEINE, THIRD DOSE: 10,000MG PO MIXED IN JUICE PER DR RAYA Q4 HR ORDERS. PT TOLLERATED WELL, SWALLOWED WITHOUT DIFFICULTIES. VSS. CONTINUE TO MONITOR.
--- NOTE | 2019-07-31 04:15 | NUR ---
PT AMBULATED TO RESTROOM WITH STEADY GAIT. ACCOMPANIED BY DONNY RN.
--- NOTE | 2019-07-31 04:30 | NUR ---
PT AWAKE. STATES TAKING FULL BOTTLE OF TYLENOL PM AT HOME AND THE REMAINS OF HER SON'S CLONIPINE WITH INTENT TO HARM SELF. SHE HAS DM AND HAS NOT BEEN TAKING CARE OF HER OWN NEEDS. SHE IS OVERWHELMED AT HOME AND FEEL'S LIKE SHE DID NOT HAVE ANOTHER WAY OUT. PT IS CALM AND RESTING IN BED WITH EYES OPEN. PT EXPRESSING GRATIFICATION FOR PROVIDING HER WITH THE HELP SHE NEEDS. VSS. SITTER AT CHAIR SIDE. CONTINUE TO MONITOR.
[2019-07-31] MEDS ORDERED: INSU100S5 IJ (04:47)
[2019-07-31] MEDS ORDERED: LEVO0.3T5 PO (04:48)
[2019-07-31] MEDS ORDERED: DOCUSATE SODIUM 100 MG GELCAP PO PRN (05:15)
[2019-07-31] MEDS ORDERED: ONDANSETRON 4 MG/2 ML VIAL IM/IVP PRN (05:15)
--- NOTE | 2019-07-31 06:00 | NUR ---
PT ASLEEP IN BED, EASY TO AROUSE, ABLE TO VERBALIZE NEEDS, VSS AT THIS TIME. 1:1 SITTER AT BEDSIDE.
--- NOTE | 2019-07-31 06:07 | NUR ---
XRAY AT BEDSIDE
[2019-07-31 06:28] LABS: PROTHROMBIN TIME 10.7 secs (10.8-13.4)
[2019-07-31 06:32] LABS: BASOPHILS % (AUTO) 0.4 % (0.0-2.0); EOSINOPHILS # (AUTO) 0.1 K/uL (0-0.4); EOSINOPHILS % (AUTO) 0.5 % (0.0-4.0); HEMATOCRIT 36.5 % (36-48); HEMOGLOBIN 12.1 g/dL (12.0-16.0); LYMPHOCYTES # (AUTO) 2.2 K/uL (2.5-16.5); LYMPHOCYTES % (AUTO) 20.8 % (20.5-51.1); MEAN CORPUSCULAR HEMOGLOBIN 28 pg (27-31); MEAN CORPUSCULAR HGB CONC 33 g/dL (33-37); MEAN CORPUSCULAR VOLUME 85.2 fL (80-94); MONOCYTES # (AUTO) 0.5 K/uL (0.8-1.0); MONOCYTES % (AUTO) 5.1 % (1.7-9.3); NEUTROPHILS # (AUTO) 7.7 K/uL (1.8-7.7); NEUTROPHILS % (AUTO) 73.2 % (42.2-75.2); PLATELET COUNT (AUTO) 251 K/uL (140-450); RED BLOOD CELL COUNT(AUTO) 4.29 MIL/uL (4.20-5.40); RED CELL DISTRIBUTION WIDTH 13.6 % (11.6-13.7); WHITE BLOOD COUNT (AUTO) 10.6 K/uL (4.8-10.8)
[2019-07-31 06:41] LABS: ANION GAP 18.6 (8-16); CARBON DIOXIDE 20.2 mmol/L (21-32); POTASSIUM 3.8 mmol/L (3.5-5.1)
--- NOTE | 2019-07-31 07:17 | NUR ---
BEDSIDE REPORT FOR ENDORSEMENT OF CARE GIVEN TO NGUYEN RICCI.
[2019-07-31] MEDS: NACL 0.9% 1,000 ML IV SCH ×2 (07:30→14:14)
--- NOTE | 2019-07-31 07:34 | NUR ---
Dr. David Villalpando evaluating patient at bedside.
--- NOTE | 2019-07-31 08:00 | NUR ---
ON DUTY RECEIVED THIS PT A/OX3. LYING ON BED QUIETLY. PT WAS ADMITED TO ICU. WAITING FOR. BED. NO ACUTE DISTRESS. VS STABLE. MUCOMUST WAS REQESTED FROM PHARMACY. BUT NO DELIVERED YET. PT WENT TO BATH IN STEADY GAIT. SECOND URINE SAMPLE OBTAINED AND SENT TO LAB @3674.
--- NOTE | 2019-07-31 09:16 | NUR ---
CALL TO DR HADLEY REGARDING PT BLOOD SUGAR AND CONCERNS ABOUT MUCOMYST. ORDERS TO FOLLOW AND DR HADLEY TO CALL BACK.
[2019-07-31] MEDS ORDERED: DEXTROSE 50% 50 ML SYR IVP PRN (09:25)
--- NOTE | 2019-07-31 09:40 | NUR ---
PT WAS ADMITED TO ICU. BED 6. PT WAS SENT TO ICU WITH EMT LONNY. ONE MORE IVSL 22G STARTED @RA. NS0.95 CHANGED TO THAT PORT, VBG WAS DRAWN BY THE WAY. REPORT ENDORSED BEDSIDE TO HEATING UNIT MECHANIC.
[2019-07-31] MEDS ORDERED: DEXTROSE 5% IV SCH (10:00)
[2019-07-31] MEDS ORDERED: ACETYLCYSTEINE IV SCH ×2 (10:00→17:00)
--- NOTE | 2019-07-31 10:00 | NUR ---
RECEIVED PT FROM SUDHIR MARTIN, SHE IS DROWSY , ABLE TO GURNEY TO BED FOLLOW COMMAND,SKIN WARM DRY TO TOUCH. ON ROOM AIR , IV SITE HAS #20 AT RT. AC HAS NO BL. RETURN. RESTARTED ON RT ARM.
--- NOTE | 2019-07-31 10:15 | NUR ---
BLOOD GLUCOSE ACCUE CHECK 448. DR RAMÍREZ NOTIFIED ORDERED TO GIVE 12 UNIT REG,INSURIN COVER ORDER.
--- NOTE | 2019-07-31 10:20 | NUR ---
PATIENT REMAIN SLEEPY, THE POISON CONTROL REPORTED BY ER.
[2019-07-31] MEDS ORDERED: INSULIN REGULAR, HUMAN 100 UNIT/ML VIAL IVP SCH (10:27)
[2019-07-31] MEDS: ACETYLCYSTEINE IV SCH ×2 (11:03→14:00)
[2019-07-31] MEDS: NACL 0.45% IV SCH ×2 (11:03→14:00)
[2019-07-31] MEDS: INSULIN LISPRO SLIDING SCALE 100 UNITS/ML VIAL SUBQ PRN ×3 (11:05→20:52)
[2019-07-31] MEDS: BLOOD GLUCOSE MONITORING 1 DEV DEV FS SCH ×3 (11:30→20:49)
--- NOTE | 2019-07-31 11:45 | NUR ---
BLOOD GLUCOSE 362 DR. NICE NOTIFIED REG INSULIN COVER ORDERED.
[2019-07-31] MEDS ORDERED: ACETYLCYSTEINE IV PER PHARMACY 1 EA MISC MC PRN (12:00)
[2019-07-31 14:04] LABS: MAGNESIUM 1.7 mg/dL (1.8-2.4); PHOSPHORUS 3.2 mg/dL (2.5-4.9)
--- NOTE | 2019-07-31 14:05 | NUR ---
UNABLE TO OBTAIN ABG AT THIS TIME PT WANTS TO WAIT TIL LATER WILL RETRY LATER
[2019-07-31 14:06] LABS: CHOL/HDL RATIO 3.6 (1-4.5)
[2019-07-31 14:07] LABS: FREE T4 (FREE THYROXINE) 0.75 ng/dL (0.76-1.46)
--- NOTE | 2019-07-31 15:05 | NUR ---
PATIENT HAS BEEN SCREENED AND CATEGORIZED HIGH NUTRITION RISK. PATIENT WILL BE SEEN WITHIN 1-2 DAYS OF ADMISSION. 07/31/19-08/01/[address]
--- NOTE | 2019-07-31 15:38 | NUR ---
COULD NOT OBTAIN ABG TWO ATTEMPTS WERE MADE AND NOT ABLE TO GET WILL ENDORSE TO NOC SHIFT
--- NOTE | 2019-07-31 15:46 | NUR ---
INFORMED DR.SADIQI CROFT WAS NOT OBTAINED AT THIS TIME, SHE WILL ORDER PIC LINE I TOLD HER I WOULD ENDORSE TO QA TESTER
[2019-07-31 16:01] LABS: THYROID STIMULATING HORMONE 148.13 uIU/mL (0.34-3.74)
--- NOTE | 2019-07-31 16:50 | NUR ---
BL. GLUCOSE 85 DR. HADLEY AWARE CHANGED IV FLUID TO D5 NS 160 ML/HR.
[2019-07-31] MEDS ORDERED: NACL 0.45% IV SCH (17:00)
[2019-07-31 17:44] LABS: PROTHROMBIN TIME 10.4 secs (10.8-13.4)
[2019-07-31] MEDS: DEXT 5% /NACL 0.9% 1,000 ML IV SCH ×2 (17:58→23:45)
[2019-07-31] MEDS ORDERED: MAGNESIUM OXIDE 400 MG TAB PO SCH (18:00)
--- NOTE | 2019-07-31 18:00 | NUR ---
UP ON ON RECLINE CHAIR , SHE APPEAR IN GOOD SPIRIT BUT C/O NUMBNESSON RT HAND.
--- NOTE | 2019-07-31 19:14 | NUR ---
RECEIVED REPORT FROM AM SHIFT. PT A/O X4. ABLE TO VERBALIZE NEEDS. RESPONDS TO VERBAL AND TACTILE STIMULI. NO SIGNS OF ACUTE DISTRESS. ON MUCOMYST 65ML AND D5NS @ 160. ROOM AIR. LUNG SOUNDS CLEAR BILAT. SKIN INTACT. IV SITE R AC 20G AND R FA 22 G. BED IN LOWEST POSITION. UP IN CHAIR AT THIS TIME. WILL CONTINUE TO MONITOR.
--- NOTE | 2019-07-31 19:15 | NUR ---
OOB IN CHAIR, FAMILY AT THE SITE REPORT GIVE TO COREY.
[2019-07-31 21:15] LABS: APPEARANCE,URINE CLEAR (CLEAR); BILIRUBIN,URINE NEGATIVE (NEGATIVE); BLOOD, URINE NEGATIVE (NEGATIVE); COLOR,URINE YELLOW (YELLOW); LEUKOCYTE ESTERASE ,URINE NEGATIVE (NEGATIVE); NITRITE, URINE NEGATIVE (NEGATIVE); UGLUCOSE 3+ (NEGATIVE)
--- NOTE | 2019-07-31 21:17 | NUR ---
DR. LEMUS AT BEDSIDE AT THIS TIME UPDATED ON PTS CURRENT CONDITION. WILL CONTINUE TO FOLLOW UP ANY ADDITIONAL ORDERS.
[2019-08-01] VITALS (9 sets, daily range): BP systolic 95–120; BP diastolic 53–75
--- NOTE | 2019-08-01 | NUR ---
FAMILY AT BEDSIDE AT THIS TIME. NO SIGNS OF ACUTE DISTRESS NOTED. CONTINUE TO MONITOR.
--- NOTE | 2019-08-01 01:15 | NUR ---
PT AT CT SCAN AT THIS TIME.
--- NOTE | 2019-08-01 02:23 | NUR ---
DR. LEMUS AT BEDSIDE AT THIS TIME. UPDATED ON CURRENT CT RESULTS. NO SIGNS OF ACUTE DISTRESS NOTED.
--- NOTE | 2019-08-01 02:31 | NUR ---
PT C/O GENERALIZED PAIN AT THIS TIME. DR. LEMUS MADE AWARE. WILL CONTINUE TO FOLLOW UP ANY ADDITIONAL ORDERS.
[2019-08-01] MEDS ORDERED: MORPHINE SULFATE 2 MG/ML SYR IVP ONE (02:55)
[2019-08-01 03:35] LABS: PROTHROMBIN TIME 10.4 secs (10.8-13.4)
[2019-08-01 03:41] LABS: CARBON DIOXIDE 20.3 mmol/L (21-32); POTASSIUM 3.3 mmol/L (3.5-5.1)
[2019-08-01 03:45] LABS: MAGNESIUM 1.6 mg/dL (1.8-2.4); PHOSPHORUS 2.6 mg/dL (2.5-4.9)
[2019-08-01] MEDS: LEVOTHYROXINE 0.1 MG TAB PO SCH (06:02)
[2019-08-01 06:08] LABS: T4 (THYROXINE) 5.8 ug/dL (4.5-12.0)
[2019-08-01 06:10] LABS: HEMOGLOBIN 11.6 g/dL (12.0-16.0); MEAN CORPUSCULAR HEMOGLOBIN 28 pg (27-31); MEAN CORPUSCULAR HGB CONC 32 g/dL (33-37); MEAN CORPUSCULAR VOLUME 86.9 fL (80-94); RED CELL DISTRIBUTION WIDTH 14.3 % (11.6-13.7)
[2019-08-01 06:11] LABS: BASOPHILS % (AUTO) 0.6 % (0.0-2.0); EOSINOPHILS # (AUTO) 0.1 K/uL (0-0.4); EOSINOPHILS % (AUTO) 1.1 % (0.0-4.0); LYMPHOCYTES # (AUTO) 2.2 K/uL (2.5-16.5); LYMPHOCYTES % (AUTO) 27.5 % (20.5-51.1); MONOCYTES # (AUTO) 0.4 K/uL (0.8-1.0); MONOCYTES % (AUTO) 5.6 % (1.7-9.3); NEUTROPHILS # (AUTO) 5.2 K/uL (1.8-7.7); NEUTROPHILS % (AUTO) 65.2 % (42.2-75.2); PLATELET COUNT (AUTO) 277 K/uL (140-450)
--- NOTE | 2019-08-01 06:20 | NUR ---
DR. LANDAVERDE AT BEDSIDE AT THIS TIME. UPDATED ON PTS CURRENT CONDITION. WILL CONTINUE TO FOLLOW UP ANY ADDITIONAL ORDERS.
--- NOTE | 2019-08-01 07:04 | NUR ---
RECEIVED BEDSIDE REPORT FROM ISHA DRIVER MANAGER RN, FOR CONTINUITY OF CARE. PATIENT IS AAOX4, LETHARGIC. PATIENT SKIN IS WARM, DRY, AFEBRILE, INTACT. PATIENT HAS PERIPHERAL IV SITE TO RAC, 20G, AND RFA, 22G, BOTH ASYMPTOMATIC AND PATENT. PATIENT IS ON ROOM AIR, BREATHING EVEN AND UNLABORED. SR ON MONITOR, DENIES PAIN. HOB IS SEMI GABRIEL, SIDE RAILS UP 3X, BED LOCKED IN LOW POSITION. CALL LIGHT WITHIN REACH. NO SIGNS OF DISTRESS, WILL CONTINUE TO MONITOR
--- NOTE | 2019-08-01 07:14 | NUR ---
ENDORSED CARE TO INCOMING SHIFT RN FOR CONTINUITY OF CARE.
[2019-08-01 07:25] LABS: BILIRUBIN,DIRECT 0.1 mg/dL (0.0-0.3); TOTAL BILIRUBIN 0.3 mg/dL (0.0-1.0)
[2019-08-01 07:26] LABS: ALBUMIN 2.5 g/dL (3.4-5.0)
[2019-08-01] MEDS: BLOOD GLUCOSE MONITORING 1 DEV DEV FS SCH ×4 (07:44→21:01)
--- NOTE | 2019-08-01 07:48 | NUR ---
PROVIDED PATIENT WITH BREAKFAST TRAY, STATES TO SET ASIDE BY BEDSIDE SINCE SHE STILL FEELS SLEEPY.
[2019-08-01] MEDS ORDERED: POTASSIUM CHLORIDE 40 MEQ, LIDOCAINE MPF 1% 25 MG in NACL 0.9% 250 ML IV SCH (08:00)
[2019-08-01] MEDS ORDERED: MAGNESIUM OXIDE 400 MG TAB PO SCH (08:00)
--- NOTE | 2019-08-01 08:04 | NUR ---
DR. CONTRERAS AND RESIDENT PHYSICIANS AT BEDSIDE, UPDATED ON PATIENT'S CONDITION.
[2019-08-01] MEDS: NACL 0.9% 1,000 ML IV SCH ×4 (08:09→22:20)
[2019-08-01] MEDS: INSULIN LISPRO SLIDING SCALE 100 UNITS/ML VIAL SUBQ PRN ×4 (08:11→21:03)
--- NOTE | 2019-08-01 09:59 | NUR ---
DR. MATHIS IS HERE TO SEE AND EXAMINE PATIENT.
--- NOTE | 2019-08-01 11:00 | NUR ---
DR. STONER IS HERE TO SEE PATIENT, UPDATED ON PATIENT'S CONDITION.
--- NOTE | 2019-08-01 11:19 | NUR ---
RAZ FROM POISON CONTROL CALLED, UPDATED ON PATIENT'S CONDITION. STATES THAT PATIENT DOES NOT NEED ANYMORE MUCOMYST SINCE THE ACETAMINOPHEN LAB SHOWS LESS THAN 0.5 AND LABS ARE STABLE.
--- NOTE | 2019-08-01 11:37 | NUR ---
PATIENT VOIDED VIA BEDPAN, CLEANED AND REPOSITIONED FOR COMFORT.
--- NOTE | 2019-08-01 11:51 | NUR ---
DESIGN PRINTER BALLOON AT BEDSIDE PROVIDING DIABETIC SELF CARE AND DIET EDUCATION.
--- NOTE | 2019-08-01 11:52 | NUR ---
PROVIDED PATIENT WITH LUNCH TRAY, NO SIGNS OF DISTRESS NOTED.
--- NOTE | 2019-08-01 12:45 | NUR ---
PT RECIEVED FROM ICU. REPORT RECEIVED FROM KURT OVER THE PHONE. PT HAS 22G IV TO R FOREARM. VITALS: BP 117/75, HR 85, RR 18, SPO2 97% ON ROOM AIR, PAIN 0/10, TEMP 97.7. PT BREATHING IS EVEN AND UNLABORED. NO SIGNS OF ACUTE DISTRESS. WILL CONTINUE CARE. Addendum: 08/01/19 at 1505 by Tata Yates RN TIME PT RECEIVED IS 1445. ABOVE TIME IS INCORRECT
--- NOTE | 2019-08-01 14:00 | NUR ---
PT IN BED SLEEPING. PT HAS 1:1 SITTER. BREATHING EVEN AND UNLABORED ON ROOM AIR. NO SIGNS OF ACUTE DISTRESS AT THIS TIME.
[2019-08-01 14:53] LABS: FREE T4 (FREE THYROXINE) 0.68 ng/dL (0.76-1.46)
--- NOTE | 2019-08-01 15:37 | NUR ---
08/01/19 RD INITIAL ASSESSMENT COMPLETED PLEASE REFER TO NUTRITION ASSESSMENT UNDER CARE ACTIVITY FOR ESTIMATED NUTRITIONAL NEEDS. [facility]. [facility] TOLERATED 2. RD PROVIDED DIABETES NUTRITION EDUCATION. PT ACCEPTED 3. RD TO FOLLOW-UP 5-7 DAYS, LOW RISK PETER BELLO RD
--- NOTE | 2019-08-01 16:00 | NUR ---
PT ASKED THAT I CALL HER SISTER AND INFORM HER THAT SHE IS NOW ON MST AND NO LONGER IN ICU. PT SISTER, VANE SEWELL , CALLED AND INFORMED OF PT BEING ON MST. PT AND SISTER RECEIVED TEACHING ABOUT CHILDREN ON UNIT AND HOW IT IS NOT RECOMMENDED BECAUSE PT STATED SHE WANTED TO CHILDREN, AGE 5 AND AGE7, TO VISIT.
[2019-08-01 16:58] LABS: THYROID STIMULATING HORMONE 159.46 uIU/mL (0.34-3.74)
--- NOTE | 2019-08-01 17:06 | NUR ---
PT IN BED. AAOX4. PT BREATHING EVEN AND UNLABORED ON ROOM AIR. NO SIGNS OF ACUTE DISTRESS. WILL CONTINUE TO ASSESS FOR CHANGES IN CONDITION.
--- NOTE | 2019-08-01 18:10 | NUR ---
PT IN BED. AAOX4. PT BREATHING EVEN AND UNLABORED ON ROOM AIR. PT HAS 1:1 SITTER. DINNER AT BEDSIDE. NO SIGNS OF ACUTE DISTRESS. WILL CONTINUE TO ASSESS FOR CHANGES IN CONDITION.
--- NOTE | 2019-08-01 19:00 | NUR ---
RECEIVED BEDSIDE REPORT FROM DAY SHIFT NURSE. PATIENT IS AWAKE, ALERT, AND COOPERATIVE. RESPIRATION EVEN UNLABORED ON ROOM AIR. NO DISTRESS NOTED. SKIN IS WARM AND DRY. IV PATENT AND INTACT. PATIENT IS ON HOLD FOR 5150 SITTER AT BEDSIDE. PLAN OF CARE WAS DISCUSSED. ALL SAFETY MEASURE IN PLACE. BED IS AT LOW POSITION. CALL LIGHT WITHIN REACH AND VERBALIZES ITS USE. WILL CONTINUE TO MONITOR.
--- NOTE | 2019-08-01 19:10 | NUR ---
PT ENDORSED TO NIGHT RN. 24 G IV TO R FOREARM WITH NS AT 160 ML/HR. PT AMBULATED TO RESTROOM. PT STABLE AT REPORT.
--- NOTE | 2019-08-01 20:00 | NUR ---
INITIAL ASSESSMENT DONE. VITALS WERE TAKEN. PATIENT IN STABLE CONDITION. SITTER AT BEDSIDE. WILL CONTINUE TO MONITOR.
--- NOTE | 2019-08-01 21:00 | NUR ---
ALL SCHEDULED MEDS WERE GIVEN PER ORDER. NO ASE NOTED. WILL CONTINUE TO MONITOR.
--- NOTE | 2019-08-01 22:30 | NUR ---
PATIENT SLEEPING RESPIRATION EVEN UNLABORED ON ROOM AIR. NO DISTRESS NOTED. SITTER AT BEDSIDE. WILL CONTINUE TO MONITOR.
[2019-08-02] VITALS: BP 113/73
--- NOTE | 2019-08-02 00:01 | NUR ---
VITALS WERE TAKEN. PATIENT IN STABLE CONDITION. NO DISTRESS NOTED. WILL CONTINUE TO MONITOR.
--- NOTE | 2019-08-02 01:55 | NUR ---
CHECKED ON PATIENT. PATIENT AWAKE, WATCHING TV NO DISTRESS NOTED. SITTER AT BEDSIDE. WILL CONTINUE TO MONITOR.
[2019-08-02 04:00] VITALS: BP 121/62
--- NOTE | 2019-08-02 04:05 | NUR ---
VITALS WERE TAKEN. PATIENT IN STABLE CONDITION. NO DISTRESS NOTED. WILL CONTINUE TO MONITOR.
[2019-08-02] MEDS: LEVOTHYROXINE 0.1 MG TAB PO SCH (06:07)
[2019-08-02] MEDS: INSULIN LISPRO SLIDING SCALE 100 UNITS/ML VIAL SUBQ PRN ×5 (06:11→21:48)
[2019-08-02] MEDS: BLOOD GLUCOSE MONITORING 1 DEV DEV FS SCH ×4 (06:11→20:39)
[2019-08-02 06:43] LABS: BASOPHILS % (AUTO) 0.5 % (0.0-2.0); EOSINOPHILS # (AUTO) 0.1 K/uL (0-0.4); EOSINOPHILS % (AUTO) 1.3 % (0.0-4.0); HEMATOCRIT 33.9 % (36-48); LYMPHOCYTES # (AUTO) 2.3 K/uL (2.5-16.5); LYMPHOCYTES % (AUTO) 30.8 % (20.5-51.1); MEAN CORPUSCULAR HEMOGLOBIN 28 pg (27-31); MEAN CORPUSCULAR HGB CONC 32 g/dL (33-37); MEAN CORPUSCULAR VOLUME 86.4 fL (80-94); MONOCYTES # (AUTO) 0.5 K/uL (0.8-1.0); MONOCYTES % (AUTO) 6.4 % (1.7-9.3); NEUTROPHILS # (AUTO) 4.6 K/uL (1.8-7.7); PLATELET COUNT (AUTO) 215 K/uL (140-450); RED BLOOD CELL COUNT(AUTO) 3.93 MIL/uL (4.20-5.40); RED CELL DISTRIBUTION WIDTH 14.2 % (11.6-13.7); WHITE BLOOD COUNT (AUTO) 7.5 K/uL (4.8-10.8)
[2019-08-02] MEDS: NACL 0.9% 1,000 ML IV SCH ×3 (06:43→20:39)
--- NOTE | 2019-08-02 07:11 | NUR ---
ENDORSED PATIENT TO DAY SHIFT NURSE. PATIENT IN STABLE CONDITION.
--- NOTE | 2019-08-02 07:12 | NUR ---
PT RECEIVED FROM NIGHT RNADIS. PT IN BED. 24 G IV TO L FA PATENT WITH NS AT 160 RUNNING. PT SLEEPING. BREATHING EVEN AND UNLABORED ON ROOM AIR. NO SIGNS OF ACUTE DISTRESS AT THIS TIME. WILL CONTINUE CARE.
[2019-08-02 07:36] LABS: MAGNESIUM 1.6 mg/dL (1.8-2.4); PHOSPHORUS 3.1 mg/dL (2.5-4.9)
[2019-08-02 07:50] LABS: ACETAMINOPHEN < 0.5 ug/ml (10-30)
[2019-08-02 07:50] LABS: ANION GAP 14.8 (8-16); CARBON DIOXIDE 19.8 mmol/L (21-32); CREATININE 0.9 mg/dL (0.6-1.3); POTASSIUM 3.6 mmol/L (3.5-5.1)
[2019-08-02 08:00] VITALS: BP_SYST 134; BP_DIAS 70; BP_DIAS 76
--- NOTE | 2019-08-02 08:26 | NUR ---
BEDSIDE REPORT RECEIVED FROM DADA CEDILLO FOR CONTINUITY OF CARE.
[2019-08-02 09:11] LABS: PROTHROMBIN TIME 9.9 secs (10.8-13.4)
[2019-08-02] MEDS: ESCITALOPRAM 20 MG TAB PO SCH (09:21)
--- NOTE | 2019-08-02 09:22 | NUR ---
ADMINISTERED MEDS PER MD ORDER, PATIENT TOLERATED WELL. MEDS EDUCATION PROVIDED TO PATIENT AND PATIENT VERBALIZED UNDERSTANDING. PATIENT AWAKE AND RESTING ON BED AT THIS TIMES. DENIED PAIN, SOB, AND DIZZINESS. NO SIGNS OF DISTRESS NOTED. SAFETY MEASURES IN PLACE. TELE MONITOR IN PLACE. BED IN LOW POSITION AND CALL LIGHT WITHIN REACH. INSTRUCTED PATIENT TO UES THE CALL LIGHT FOR ANY ASSISTANCE AND PATIENT WAS AWARE. SITTER BY BEDSIDE.
[2019-08-02] MEDS ORDERED: MAGNESIUM OXIDE 400 MG TAB PO SCH (10:00)
[2019-08-02] MEDS ORDERED: LEVOTHYROXINE SODIUM 100 MCG VIAL IV SCH (10:30)
--- NOTE | 2019-08-02 10:47 | NUR ---
ADMINISTERED MG OXIDE FOR LOW MG FROM AM LAB PER MD ORDER, PATIENT TOLERATED WELL. MED EDUCATION PROVIDED TO PATIENT AND PATIENT VERBALIZED UNDERSTANDING. PATIENT DENIED PAIN, SOB AND DIZZINESS. PATIENT IS RESTING ON BED AT THIS TIME. NO SIGNS OF DISTRESS NOTED. TELE MONITOR ATTACHED. SAFETY MEASURES IN PLACE. BED IN LOW POSITION AND SITTER BY BEDSIDE.
--- NOTE | 2019-08-02 11:30 | NUR ---
RESUMED PT CARE FROM NGUYEN REY. PT IN BED. AAOX4. NO SIGNS OF ACUTE DISTRESS AT THIS TIME.
[2019-08-02 12:00] VITALS: BP 129/82
--- NOTE | 2019-08-02 12:28 | NUR ---
PT RECEIVED 11 UN SLIDING SCALE FOR BLOOD SUGAR 362. PT IN BED, BREATHING EVEN AND UNLABORED. NO SIGNS OF ACUTE DISTRESS. FAMILY AT BEDSIDE.
--- NOTE | 2019-08-02 13:20 | NUR ---
PT ASKED TO BE TEMPORARILY DISCONNECTED FROM IV SO SHE COULD AMBULATE TO RESTROOM. PT AMBULATED TO RESTROOM WITH STEADY GAIT, STANDBY ASSIST. PT WALKED BACK TO BED WITH STEADY GAIT.
--- NOTE | 2019-08-02 15:08 | NUR ---
CALLED [facility] PT'S INSURANCE IS [facility]. CALLED [facility] THEY DON'T TAKE ADULT PT.
[2019-08-02 16:00] VITALS: BP 140/76
--- NOTE | 2019-08-02 16:35 | NUR ---
Packet faxed to [facility] for review.
--- NOTE | 2019-08-02 16:41 | NUR ---
Packet faxed to [facility] for review.
--- NOTE | 2019-08-02 17:55 | NUR ---
PT RECEIVED 5 U SLIDING SCALE FOR BLOOD GLUCOSE 242. PT IN BED SLEEPING AND AWOKE TO VERBAL STIMULI. PT AAOX4, SO SIGNS OF ACUTE DISTRESS AT THIS TIME.
--- NOTE | 2019-08-02 19:24 | NUR ---
PT ENDORSED TO NIGHT RN. PT AAOX4 FAMILY AT BEDSIDE. BREATHING EVEN AND UNLABORED ON ROOM AIR. 24 G IV TO R FA PATENT WITH NS AT 160 ML/HR. BREATHING EVEN AND UNLABORED. PT HAS 1:1 SITTER. NO SIGNS OF ACUTE DISTRESS.
--- NOTE | 2019-08-02 19:25 | NUR ---
RECEIVED FROM AM RN IN BED AWAKE AND SITTING UP AT THE EDGE OF BED WITH VISITORS PRESENT. ABLE TO VERBALIZE NEEDS WELL. NO SOB. DENIES ANY PAIN. PT. CARE PLANS DISCUSSED WITH HER AND CALL LIGHT WITH IN REACH. SITTER 1 :1. PT. AT THIS TIME WITH GOOD AFFECT AND HAPPY .
[2019-08-02 20:00] VITALS: BP 135/75
--- NOTE | 2019-08-02 23:00 | NUR ---
ENDORSED TO CHARGE NURSE FOR CONTINUITY OF CARE AWAKE A ND ALERT.
--- NOTE | 2019-08-02 23:15 | NUR ---
RECEIVED REPORT FROM TRACEY CEDILLO.PT'S CONDITION IS STABLE.NO C/O PAIN OR DISCOMFORT NOW.TELE IS ON AND SHOWING SR.CALL LIGHT IN REACH.WILL CONTINUE MONITORING.
[2019-08-02] MEDS ORDERED: ZOLPIDEM 5 MG TAB PO ONE (23:40)
[2019-08-03] VITALS: BP 140/78
--- NOTE | 2019-08-03 00:30 | NUR ---
HR IS SR IVF IS IN PROGRESS.NO DISTRESS NOTED NOW.
[2019-08-03] MEDS: NACL 0.9% 1,000 ML IV SCH ×3 (03:52→15:43)
[2019-08-03 04:00] VITALS: BP 125/70
--- NOTE | 2019-08-03 04:02 | NUR ---
Follow up calls were made to [facility] facilities, still no beds available through out shift. [facility] will continue to call for placement.
[2019-08-03] MEDS: BLOOD GLUCOSE MONITORING 1 DEV DEV FS SCH ×4 (06:53→21:36)
[2019-08-03] MEDS: INSULIN LISPRO SLIDING SCALE 100 UNITS/ML VIAL SUBQ PRN ×4 (06:54→22:09)
--- NOTE | 2019-08-03 07:15 | NUR ---
PT RECEIVED FROM NIGHT RNDONG. PT IN BED SLEEPING. BREATHING EVEN AND UNLABORED ON ROOM AIR. NS AT 160 ML/R TO 24G ON L FA. NO SIGNS OF ACUTE DISTRESS AT THIS TIME. WILL RESUME CARE.
--- NOTE | 2019-08-03 07:22 | NUR ---
SLEPT WELL AFTER AMBIEN GIVEN FOR SLEEP.PT DOESN'T EAT PORK. WILL ORDER.SHE IS STABLE.
[2019-08-03 07:43] LABS: BASOPHILS % (AUTO) 0.4 % (0.0-2.0); EOSINOPHILS # (AUTO) 0.1 K/uL (0-0.4); EOSINOPHILS % (AUTO) 1.4 % (0.0-4.0); HEMATOCRIT 33.2 % (36-48); HEMOGLOBIN 10.9 g/dL (12.0-16.0); LYMPHOCYTES # (AUTO) 2.4 K/uL (2.5-16.5); LYMPHOCYTES % (AUTO) 31.8 % (20.5-51.1); MEAN CORPUSCULAR HEMOGLOBIN 28 pg (27-31); MEAN CORPUSCULAR HGB CONC 33 g/dL (33-37); MEAN CORPUSCULAR VOLUME 86.5 fL (80-94); MONOCYTES # (AUTO) 0.4 K/uL (0.8-1.0); MONOCYTES % (AUTO) 5.6 % (1.7-9.3); NEUTROPHILS # (AUTO) 4.5 K/uL (1.8-7.7); NEUTROPHILS % (AUTO) 60.8 % (42.2-75.2); PLATELET COUNT (AUTO) 230 K/uL (140-450); RED BLOOD CELL COUNT(AUTO) 3.84 MIL/uL (4.20-5.40); RED CELL DISTRIBUTION WIDTH 13.9 % (11.6-13.7); WHITE BLOOD COUNT (AUTO) 7.4 K/uL (4.8-10.8)
[2019-08-03 08:00] VITALS: BP 102/48
[2019-08-03 08:02] LABS: ANION GAP 14.4 (8-16); CARBON DIOXIDE 21.2 mmol/L (21-32); CREATININE 0.7 mg/dL (0.6-1.3); POTASSIUM 3.6 mmol/L (3.5-5.1)
[2019-08-03 08:08] LABS: MAGNESIUM 1.8 mg/dL (1.8-2.4); PHOSPHORUS 3.5 mg/dL (2.5-4.9)
[2019-08-03 08:10] LABS: PROTHROMBIN TIME 10.1 secs (10.8-13.4)
[2019-08-03] MEDS: LEVOTHYROXINE SODIUM 100 MCG VIAL IV SCH (08:39)
[2019-08-03] MEDS: ESCITALOPRAM 20 MG TAB PO SCH (08:39)
--- NOTE | 2019-08-03 09:00 | NUR ---
PT IN BED EATING BREAKFAST. BREATHING EVEN AND UNLABORED ON ROOM AIR. PT HAS SITTER AT BEDSIDE. PT 24 G IV TO L FA PATENT AND INFUSING NS AT 160 ML/HR. NO SIGNS OF ACUTE DISTRESS AT THIS TIME. WILL CONTINUE TO ASSESS FOR CHANGES IN CONDITION.
--- NOTE | 2019-08-03 09:59 | NUR ---
Received report from production supervisor off shift. Will continue to look for placement.
--- NOTE | 2019-08-03 10:35 | NUR ---
[facility], NO BEDS AVAILABLE YET.
--- NOTE | 2019-08-03 11:00 | NUR ---
PT IN BED. NO SIGNS OF ACUTE DISTRESS. BREATHING EVEN AND UNLABORED ON ROOM AIR. SITTER AT BEDSIDE. WILL CONTINUE TO ASSESS FOR CHANGES IN CONDITION.
[2019-08-03 12:00] VITALS: BP 127/61
--- NOTE | 2019-08-03 13:00 | NUR ---
PT IN BED. NO SIGNS OF ACUTE DISTRESS. BREATHING EVEN AND UNLABORED ON ROOM AIR. SITTER AT BEDSIDE. WILL CONTINUE TO ASSESS FOR CHANGES IN CONDITION.
--- NOTE | 2019-08-03 15:00 | NUR ---
PT IN BED. FAMILY AT BEDSIDE. NO SIGNS OF ACUTE DISTRESS. BREATHING EVEN AND UNLABORED ON ROOM AIR. SITTER AT BEDSIDE. WILL CONTINUE TO ASSESS FOR CHANGES IN CONDITION.
[2019-08-03 16:00] VITALS: BP 131/70
--- NOTE | 2019-08-03 17:00 | NUR ---
PT IN BED. FAMILY AT BEDSIDE. PT AAOX4. NO SIGNS OF ACUTE DISTRESS. BREATHING EVEN AND UNLABORED ON ROOM AIR. SITTER AT BEDSIDE. WILL CONTINUE TO ASSESS FOR CHANGES IN CONDITION.
--- NOTE | 2019-08-03 19:20 | NUR ---
RECIEVED PT AAOX4 , NID , IV SITE INTACT AND PATENT , ON 1: 1 SITTER , NO COMPLAIN MADE AT THIS TIME , PLAN OF CARE DISCUSSED AND VERBALIZE UNDERSTANDING , ON SAFETY / SUICIDAL PRECAUTION PROTOCOL . WILL CONT. TO MONITOR.
--- NOTE | 2019-08-03 19:20 | NUR ---
PT ENDORSED TO NIGHT RNADITYA. PT IN BED, FAMILY AT BEDSIDE. PT AAOX4. NO SIGNS OF ACUTE DISTRESS. BREATHING EVEN AND UNLABORED. 24 G IV TO L FA PATENT WITH NS AT 160ML/HR.
[2019-08-03 20:00] VITALS: BP 131/72
[2019-08-03] MEDS ORDERED: traZODone 50 MG TAB PO SCH (21:00)
--- NOTE | 2019-08-03 22:00 | NUR ---
MADE ROUNDS , TALKING TO THE VISITORS , WILL CONT. TO MONITOR. ON 1: 1 SITTER.
[2019-08-04] VITALS: BP 128/65
--- NOTE | 2019-08-04 | NUR ---
REFER TO [facility] PT. REQUESTING ANOTHER FORM OF SLEEPING PILLS ASIDE TO TRAZADONE , BUT THE ASIA SAID SHE UNABLE TO ADD MORE SLEEPING PILLS AT THIS TIME UNLESS THE PT IS PROPERLY EVALUATED BY PSYCHE DOCTOR - INFORMED PT ABOUT THIS .
--- NOTE | 2019-08-04 04:00 | NUR ---
NO COMPLAIN MADE AT THIS TIME
--- NOTE | 2019-08-04 04:17 | NUR ---
Follow up calls were made to [facility] contracted facilities, still no update on bed placement through out shift, no beds available.
[2019-08-04] MEDS: NACL 0.9% 1,000 ML IV SCH ×4 (05:36→17:15)
[2019-08-04] MEDS: BLOOD GLUCOSE MONITORING 1 DEV DEV FS SCH ×4 (06:14→20:57)
[2019-08-04] MEDS: INSULIN LISPRO SLIDING SCALE 100 UNITS/ML VIAL SUBQ PRN ×3 (06:26→22:29)
--- NOTE | 2019-08-04 07:15 | NUR ---
RECEIVED BEDSIDE REPORT FROM TIN POT OPERATOR NURSE ADITYA. PT IS AWAKE AND ALERT, NO S/S OF DISTRESS NOTED. NO S/O PAIN. SITTER IS AT THE DOORWAY. PT IS ON ROOM AIR, SKIN INTACT. IV SITE NOTED IN THE L FA, 24 G, INFUSING NS 160 ML/HR. FALL AND SAFETY PRECAUTIONS IN PLACE. WILL CONTINUE TO MONITOR.
--- NOTE | 2019-08-04 07:30 | NUR ---
ENDORSED TO AM SHIFT WITH STABLE CONDITION . ON 1:1 SITTER
[2019-08-04 08:00] VITALS: BP 101/61
[2019-08-04] MEDS: ESCITALOPRAM 20 MG TAB PO SCH (09:34)
[2019-08-04] MEDS: LEVOTHYROXINE SODIUM 100 MCG VIAL IV SCH (09:41)
--- NOTE | 2019-08-04 09:59 | NUR ---
AM MEDS ADMINISTERED, PT TOLERATED WELL.
--- NOTE | 2019-08-04 11:51 | NUR ---
PT IS SLEEPING COMFORTABLY.
--- NOTE | 2019-08-04 13:55 | NUR ---
PT AWAKE AND ALERT WATCHING TV, SITTER AT THE DOOR.
--- NOTE | 2019-08-04 15:28 | NUR ---
PT IS VISITING WITH FAMILY MEMBERS, SITTER AT THE ROOM, NO S/S OF ACUTE DISTRESS NOTED.
[2019-08-04 16:00] VITALS: BP 122/74
[2019-08-04] MEDS: metFORMIN 500 MG TAB PO SCH (18:05)
--- NOTE | 2019-08-04 18:55 | NUR ---
UNABLE TO OBTAIN METFORMIN 1000 MG ORDERED FOR 18:05, ACCORDING TO THE [place] PHARMACIST THERE IS A DISCONNECT BETWEEN THE ORDERING SYSTEM AND THE PYXIS. I ASKED DR FERMIN TO PUT IN A NEW ONE TIME DOSE FOR A CURRENT TIME.
--- NOTE | 2019-08-04 19:08 | NUR ---
PT'S IV IS LEAKING. INFUSION PAUSED. WILL ENDORSE TO STERILIZER MACHINE OPERATOR NURSE.
--- NOTE | 2019-08-04 19:15 | NUR ---
RECIEVED PT . AAOX4 , NID , IV SITE LEAKS - OUT - FOR RE INSERTION . AT BEDSIDE. PLAN OF CARE DISCUSSED AND VERBALIZE UNDERSTANDING . ON SUICIDE / SAFETY PRECAUTION PROTOCOL - ON 1:1 SITTER . V/S WNL . VOIDED FREELY , NO COMPLAIN MADE AT THIS TIME. WILL CONT. TO MONITOR.
--- NOTE | 2019-08-04 19:15 | NUR ---
ENDORSED PT TO LUMBER TAILER NURSE IN STABLE CONDITION.
[2019-08-04] MEDS ORDERED: metFORMIN 850 MG TAB PO SCH (20:00)
[2019-08-04] MEDS: traZODone 50 MG TAB PO SCH (20:53)
--- NOTE | 2019-08-04 22:00 | NUR ---
IV SITE RE INSERTED AND THE REMAINING 500CC OF PREVIOUSLY IVF CONTINUE OREDERED.
--- NOTE | 2019-08-05 | NUR ---
MADE ROUNDS . RESTING ON BED . ON 1:1 SITTER.
--- NOTE | 2019-08-05 00:26 | NUR ---
[facility] the following [facility] [place] [facility] Still no bed availables.
--- NOTE | 2019-08-05 02:02 | NUR ---
RESTING ON BED . ON 1:1 SITTER.
[2019-08-05] MEDS: NACL 0.9% 1,000 ML IV SCH ×2 (02:37→05:45)
--- NOTE | 2019-08-05 02:49 | NUR ---
COMPLAINING OF LEG PAIN . SHE SAID IT'S BOTHERING HER A LOT - REFER TO ASIA.
[2019-08-05] MEDS ORDERED: AMITRIPTYLINE 50 MG TAB PO SCH (03:30)
[2019-08-05] MEDS ORDERED: MORPHINE SULFATE 2 MG/ML SYR IVP SCH (05:00)
--- NOTE | 2019-08-05 05:11 | NUR ---
IV CANULLA RE INSERTED AGAIN C/O CHARGE NURSE - PROCEDURE TOLERATED - MORPHINE TIV GIVEN INSTEAD OF ELAVIL BEC ELAVIL CAN'T OVER RIDE - ASIA INFORMED .
--- NOTE | 2019-08-05 06:40 | NUR ---
Still no beds at the following contracted facilites. Will endorse to next oncoming shift to f/up for possible discharges
[2019-08-05] MEDS: BLOOD GLUCOSE MONITORING 1 DEV DEV FS SCH ×4 (07:00→21:05)
--- NOTE | 2019-08-05 07:00 | NUR ---
PT REQUESTED TO PUT MORE TAPE ON IV SITE WHILE AGO , BUT WHEN I CAME BACK -SHE IS SLEEPING - I DID NOT BOTHER HER.
[2019-08-05] MEDS: INSULIN LISPRO SLIDING SCALE 100 UNITS/ML VIAL SUBQ PRN ×3 (07:07→21:11)
--- NOTE | 2019-08-05 07:25 | NUR ---
ENDORSED TO AM SHIFT - TOLD TO AM SHIFT PT STILL C/O PAIN INSPITE OF MIRPHINE GIVEN - ASIA JUST ROUNDED / SEEN THE PT -AND REPORTED TO AM SHIFT TO FOLLOW UP ANY MED. FOR PAIN.
--- NOTE | 2019-08-05 07:25 | NUR ---
REPORT RECEIVED FROM KEY CARRIER NURSE, PT SLEEPING QUIETLY, NO C/O PAIN, RESP EVEN UNLABORED, POC REVIEWED, NO IMMEDIATE NEEDS AT THIS THIS TIME, SITTER AT BEDSIDE, WILL CONTINUE TO MONITOR
[2019-08-05 08:00] VITALS: BP 105/51
[2019-08-05] MEDS: LEVOTHYROXINE SODIUM 100 MCG VIAL IV SCH (08:12)
[2019-08-05] MEDS: INSULIN LANTUS 100 UNITS/ML 10 ML VIAL SUBQ SCH (08:13)
--- NOTE | 2019-08-05 08:20 | NUR ---
AM MEDS GIVEN, PT ANILA WELL, PT WITH FLAT AFFECT, DENIES SI ATTEMPT, STATES SHE "TOOK TYLENOL TO HELP SLEEP" DENIES TRYING TO HURT HERSELF, BUT DOES NOT RESPOND WHEN ASKED "DO YOU WANT TO KILL YOURSELF?" PT REMAINS ON 5150, WITH SITTER, ALL SAFETY MEASURES IN PLACE, WILL CONTINUE TO MONITOR
--- NOTE | 2019-08-05 08:59 | NUR ---
Received change of shift report, will continue to help facilitate placement
[2019-08-05] MEDS: ESCITALOPRAM 20 MG TAB PO SCH (09:35)
[2019-08-05] MEDS: metFORMIN 500 MG TAB PO SCH ×2 (09:35→17:45)
--- NOTE | 2019-08-05 10:33 | NUR ---
PT SLEEPING QUIETLY IN BED, APPEARS IN NO ACUTE DISTRESS.
--- NOTE | 2019-08-05 12:17 | NUR ---
PT UP OUT OF BED ON HER OWN, AMBULATED TO BATHROOM WITH STEADY GAIT
--- NOTE | 2019-08-05 13:58 | NUR ---
PT TAKEN TO RADIOLOGY FOR X RAY
[2019-08-05] MEDS: GABAPENTIN 300 MG CAP PO SCH ×2 (15:30→17:45)
[2019-08-05 16:00] VITALS: BP 109/52
--- NOTE | 2019-08-05 16:12 | NUR ---
PT SLEEPING QUIETLY IN NO ACUTE DISTRESS
--- NOTE | 2019-08-05 17:45 | NUR ---
PERCOCET GIVEN FOR BILAT LEG PAIN, PT'S MOTHER AND BROTHER AT BEDSIDE
[2019-08-05] MEDS: oxyCODONE/APAP 5/325 MG 1 TAB TAB PO PRN (17:49)
--- NOTE | 2019-08-05 18:54 | NUR ---
PT TALKING WITH FAMILY SMILING, INTERACTING APPROPRIATELY.
--- NOTE | 2019-08-05 19:10 | NUR ---
REPORT GIVEN TO STEEL INSPECTOR NURSE MATILDE WALDEN IN STABLE CONDITION.
--- NOTE | 2019-08-05 19:30 | NUR ---
RECEIVED REPORT FROM CARLINE RN.PT IS ON THE BED.NO C/O PAIN .SL PATENT.CARE PLAN DISCUSSED W/PT .SHE VERBALIZED UNDERSTANDING.WILL CONTINUE MONITORING.
[2019-08-05] MEDS: AMITRIPTYLINE 25 MG TAB PO SCH (21:00)
[2019-08-05] MEDS: traZODone 50 MG TAB PO SCH (21:02)
--- NOTE | 2019-08-05 21:53 | NUR ---
SI=830.COVED PER SLIDING SCALE.
[2019-08-06] VITALS: BP 110/50
[2019-08-06] MEDS: oxyCODONE/APAP 5/325 MG 1 TAB TAB PO PRN ×2 (00:09→17:07)
--- NOTE | 2019-08-06 00:30 | NUR ---
HAD C/O PAIN PRCOCET PO GIVEN.WILL REASSESS PAIN LATER.CONDITION STABLE.
--- NOTE | 2019-08-06 01:30 | NUR ---
SHE IS SLEEPING.
--- NOTE | 2019-08-06 06:48 | NUR ---
SLEPT WELL.TN=983 EILL COVER PER SLIDING SCALE.
--- NOTE | 2019-08-06 06:48 | NUR ---
CONDITION IS STABLE.NO DISTRESS NOTED AT THIS TIME.SITTER PRESENTED ALL NIGHT.
--- NOTE | 2019-08-06 07:15 | NUR ---
RECEIVED REPORT FROM ERGONOMIST CHARGE NURSE DONG FOR CONTINUITY OF CARE. PT IN STABLE CONDITION. RESPIRATIONS EVEN AND UNLABORED. IV INTACT AND PATENT. SAFETY MEASURES IN PLACE. BED IN LOW POSITION. CALL LIGHT AT BEDSIDE. WILL CONTINUE TO MONITOR. Addendum: 08/06/19 at 0902 by Nicki Moreno RN 1:1 SITTER AT BEDSIDE.
[2019-08-06] MEDS: INSULIN LISPRO SLIDING SCALE 100 UNITS/ML VIAL SUBQ PRN ×3 (07:35→21:29)
[2019-08-06] MEDS: BLOOD GLUCOSE MONITORING 1 DEV DEV FS SCH ×4 (07:36→21:09)
[2019-08-06 08:00] VITALS: BP 92/50
[2019-08-06] MEDS: GABAPENTIN 300 MG CAP PO SCH ×3 (08:49→17:01)
[2019-08-06] MEDS: ESCITALOPRAM 20 MG TAB PO SCH (08:49)
[2019-08-06] MEDS: metFORMIN 500 MG TAB PO SCH ×2 (08:49→17:01)
--- NOTE | 2019-08-06 09:00 | NUR ---
GAVE ORDERED DUE MEDICATIONS AT THIS TIME. PT IN STABLE CONDITION. SITTER AT BEDSIDE. BED IN LOW POSITION. WILL CONTINUE TO MONITOR.
[2019-08-06] MEDS: INSULIN LANTUS 100 UNITS/ML 10 ML VIAL SUBQ SCH (09:05)
[2019-08-06] MEDS: LEVOTHYROXINE SODIUM 100 MCG VIAL IV SCH (09:07)
[2019-08-06 10:36] LABS: HEMATOCRIT 33.9 % (36-48); HEMOGLOBIN 10.9 g/dL (12.0-16.0); MEAN CORPUSCULAR HEMOGLOBIN 28 pg (27-31); MEAN CORPUSCULAR HGB CONC 32 g/dL (33-37); MEAN CORPUSCULAR VOLUME 87.3 fL (80-94); PLATELET COUNT (AUTO) 278 K/uL (140-450); RED BLOOD CELL COUNT(AUTO) 3.88 MIL/uL (4.20-5.40); RED CELL DISTRIBUTION WIDTH 14.4 % (11.6-13.7); WHITE BLOOD COUNT (AUTO) 7.6 K/uL (4.8-10.8)
[2019-08-06 10:55] LABS: LYMPHOCYTES % (MANUAL) 25 % (20-46)
[2019-08-06 10:56] LABS: EOSINOPHILS % (MANUAL) 1 % (0-4); MONOCYTES % (MANUAL) 9 % (5-12)
--- NOTE | 2019-08-06 11:01 | NUR ---
PT LYING IN BED SLEEPING AT THIS TIME. RESPIRATIONS EVEN AND UNLABORED. BED IN LOW POSITION. SITTER 1:1 AT BEDSIDE. WILL CONTINUE TO MONITOR.
[2019-08-06 11:05] LABS: PROTHROMBIN TIME 9.8 secs (10.8-13.4)
[2019-08-06 11:12] LABS: CHOL/HDL RATIO 4.1 (1-4.5)
[2019-08-06 11:15] LABS: ANION GAP 11.1 (8-16); CARBON DIOXIDE 26.6 mmol/L (21-32); CREATININE 0.9 mg/dL (0.6-1.3); POTASSIUM 3.7 mmol/L (3.5-5.1)
[2019-08-06 11:25] LABS: ALBUMIN 2.4 g/dL (3.4-5.0); MAGNESIUM 1.7 mg/dL (1.8-2.4); PHOSPHORUS 3.8 mg/dL (2.5-4.9); THYROID STIMULATING HORMONE 46.13 uIU/mL (0.34-3.74); TOTAL BILIRUBIN 0.2 mg/dL (0.0-1.0)
[2019-08-06 11:43] LABS: BILIRUBIN,DIRECT 0.1 mg/dL (0.0-0.3)
--- NOTE | 2019-08-06 13:15 | NUR ---
RECEIVED A CALL FROM [facility] SPOKE WITH MAUREEN STATED NEEDS THE NOTE SAYS MEDICALLY CLEAR , IF MEDICALLY CLEAR TO CALL [phone] FOR INPT PSYCH PLACEMENT CM TO FOLLOW.
--- NOTE | 2019-08-06 13:33 | NUR ---
PT TALKING TO FAMILY AT BEDSIDE. BED IN LOW POSITION. SITTER 1:1 AT BEDSIDE. WILL CONTINUE TO MONITOR.
--- NOTE | 2019-08-06 15:46 | NUR ---
PT ASSISTED TO RESTROOM BY FAMILY. PT TOLERATED WELL. WILL CONTINUE TO MONITOR.
--- NOTE | 2019-08-06 15:51 | NUR ---
Discharge Planning: SW called the following contracted facilities for patient: [facility] [phone] - Left voicemail for [facility] [phone] - Left voicemail with Admissions. Closed 3-4pm. [facility] [phone] - S/W [place]. No beds available [facility] [phone] - S/W [place]. No beds available [facility] [phone] - S/W [place]. No beds available.\ [facility] [phone] - Left voicemail for Admissions. SW/CM will follow up.
[2019-08-06 16:00] VITALS: BP 102/57
--- NOTE | 2019-08-06 17:07 | NUR ---
GAVE PRN PAIN MEDICATION PER PT REQUEST. PT TOLERATED WELL. BED IN LOW POSITION. SITTER 1:1 AT BEDSIDE. WILL CONTINUE TO MONITOR.
--- NOTE | 2019-08-06 19:20 | NUR ---
GAVE REPORT TO BOTANY PROFESSOR NURSE FOR CONTINUITY OF CARE. PT IN STABLE CONDITION.
--- NOTE | 2019-08-06 19:22 | NUR ---
RECEIVED REPORT FROM AM SHIFT FOR CONTINUITY OF CARE. 1:1 SITTER AT BEDSIDE.PT IN STABLE CONDITION. RESPIRATIONS EVEN AND UNLABORED. IV INTACT AND PATENT. SAFETY MEASURES IN PLACE. BED IN LOW POSITION. CALL LIGHT AT BEDSIDE. WILL CONTINUE TO MONITOR. Addendum: 08/07/19 at 0642 by Linh Bowers RN D/C SITTER OF 08/06 1220 PM, D/C 5150 HOLD
[2019-08-06 20:00] VITALS: BP 103/49
[2019-08-06] MEDS: AMITRIPTYLINE 25 MG TAB PO SCH (21:20)
[2019-08-06] MEDS: traZODone 50 MG TAB PO SCH (21:20)
--- NOTE | 2019-08-06 21:21 | NUR ---
GIVEN DUE MEDS; CHECKED PLATELET LEVEL 278 WNL; EXPLAINED SIDE EFFECTS OF MEDICATIONS; PT VERBALIZED UNDERSTANDING
--- NOTE | 2019-08-06 22:05 | NUR ---
WAKE, ALERT ORIENTED WATCHING ON LAPTOP, PT COMFORTABLE; NO SIGNS OF DISTRESS; NO COMPLAINTS OF PAIN. Addendum: 08/07/19 at 0518 by Linh Bowers RN AWAKE
--- NOTE | 2019-08-07 00:15 | NUR ---
PT SLEEPING SUPINE COMFORTABLY; NO COMPLAINTS AT THIS TIME; WILL CONTINUE TO MONITOR
--- NOTE | 2019-08-07 02:15 | NUR ---
PT SLEEPING AT THIS TIME; NO COMPLAINTS WILL CONTINUE TO MONITOR; ABLE TO TURN INDEPENDENTLY TO SIDE
[2019-08-07 03:51] VITALS: BP 95/63
--- NOTE | 2019-08-07 05:20 | NUR ---
PT AMBULATORY ABLE TO GO TO THE BATHROOM; VOIDED; WILL CONTINUE TO MONITOR
[2019-08-07] MEDS: BLOOD GLUCOSE MONITORING 1 DEV DEV FS SCH ×4 (05:30→21:28)
[2019-08-07] MEDS: INSULIN LISPRO SLIDING SCALE 100 UNITS/ML VIAL SUBQ PRN ×3 (05:45→21:30)
[2019-08-07] MEDS: LEVOTHYROXINE 0.1 MG TAB PO SCH (05:49)
--- NOTE | 2019-08-07 06:11 | NUR ---
No placement found will endorsed to AM shift to continue to look for placement, Sherri CEDILLOzinc furnace charger nurse aware.
--- NOTE | 2019-08-07 06:54 | NUR ---
PT STILL ASLEEP, CAN BE AROUSABLE TO VERBAL STIMULI, PT IN STABLE CONDITION AT THIS TIME. NO COMPLAINTS OF PAIN. NO RESPIRATORY DISTRESS. PT WAS CALM DURING THE FARMWORKERS.
--- NOTE | 2019-08-07 07:15 | NUR ---
RECEIVED BEDSIDE REPORT FROM REVENUE ENFORCEMENT COLLECTION AGENT NURSE FOR CONTINUITY OF CARE. PATIENT IS RESTING ON BED AT THIS TIME, AROUSABLE TO VOICE. PATIENT IS AAOX4. RESPIRATION EVEN AND UNLABORED ON RA. NO SIGNS OF DISTRESS NOTED. IV ON LFA 24, CLEAN AND DRY, SL. PATIENT IS CONTINENT AND ABLE TO AMBULATE WITH STEADY GAIT. SKIN CLEAN AND DRY. DISCUSSED PLAN OF CARE WITH PATIENT AND PATIENT VERBALIZED OK. SAFETY MEASURES IN PLACE. BED IN LOW POSITION AND CALL LIGHT WITHIN REACH. INSTRUCTED PATIENT TO USE THE CALL LIGHT FOR ANY ASSISTANCE AND PATIENT WAS AWARE.
[2019-08-07 08:00] VITALS: BP 108/64
[2019-08-07] MEDS: metFORMIN 500 MG TAB PO SCH ×2 (08:08→17:01)
--- NOTE | 2019-08-07 08:08 | NUR ---
ADMINISTERED SCHEDULED MED PER MD ORDER, MED EDUCATION PROVIDED TO PATIENT AND PATIENT VERBALIZED UNDERSTANDING. PATIENT IS RESTING ON BED AT THIS TIME. DENIED PAIN, SOB AND DIZZINESS. NO SIGNS OF DISTRESS NOTED. SAFETY MEASURES IN PLACE. BED IN LOW POSITION AND CALL LIGHT WITHIN REACH. INSTRUCTED PATIENT TO USE THE CALL LIGHT FOR ANY ASSISTANCE AND PATIENT WAS AWARE.
[2019-08-07 08:10] LABS: BASOPHILS # (AUTO) 0.1 K/uL (0.00-0.22); BASOPHILS % (AUTO) 1.1 % (0.0-2.0); EOSINOPHILS # (AUTO) 0.2 K/uL (0-0.4); EOSINOPHILS % (AUTO) 1.9 % (0.0-4.0); HEMATOCRIT 32.8 % (36-48); HEMOGLOBIN 10.6 g/dL (12.0-16.0); LYMPHOCYTES # (AUTO) 2.7 K/uL (2.5-16.5); LYMPHOCYTES % (AUTO) 34.1 % (20.5-51.1); MEAN CORPUSCULAR HEMOGLOBIN 28 pg (27-31); MEAN CORPUSCULAR HGB CONC 32 g/dL (33-37); MEAN CORPUSCULAR VOLUME 87.8 fL (80-94); MONOCYTES # (AUTO) 0.5 K/uL (0.8-1.0); MONOCYTES % (AUTO) 5.7 % (1.7-9.3); NEUTROPHILS # (AUTO) 4.5 K/uL (1.8-7.7); NEUTROPHILS % (AUTO) 57.2 % (42.2-75.2); PLATELET COUNT (AUTO) 282 K/uL (140-450); RED BLOOD CELL COUNT(AUTO) 3.74 MIL/uL (4.20-5.40); RED CELL DISTRIBUTION WIDTH 14.3 % (11.6-13.7); WHITE BLOOD COUNT (AUTO) 7.9 K/uL (4.8-10.8)
[2019-08-07 08:33] LABS: ANION GAP 11.4 (8-16); CARBON DIOXIDE 27.6 mmol/L (21-32); CREATININE 0.8 mg/dL (0.6-1.3)
[2019-08-07 08:58] LABS: MAGNESIUM 1.6 mg/dL (1.8-2.4); PHOSPHORUS 4.7 mg/dL (2.5-4.9)
[2019-08-07] MEDS: INSULIN LANTUS 100 UNITS/ML 10 ML VIAL SUBQ SCH (09:03)
[2019-08-07] MEDS: ESCITALOPRAM 20 MG TAB PO SCH (09:04)
[2019-08-07] MEDS: GABAPENTIN 300 MG CAP PO SCH ×3 (09:04→17:02)
--- NOTE | 2019-08-07 09:04 | NUR ---
CHECKED BLOOD GLUCOSE AND RECEIVED 198. ADMINISTERED SCHEDULED MEDS PER MD ORDER, PATIENT TOLERATED WELL. MEDS EDUCATION PROVIDED TO PATIENT AND PATIENT VERBALIZED UNDERSTANDING. PATIENT IS RESTING ON BED AT THIS TIME. DENIED PAIN, SOB, AND DIZZINESS. NO SIGNS OF DISTRESS NOTED. SAFETY MEASURES IN PLACE. BED IN LOW POSITION AND CALL LIGHT WITHIN REACH. INSTRUCTED PATIENT TO USE THE CALL LIGHT FOR ANY ASSISTANCE AND PATIENT WAS AWARE.
--- NOTE | 2019-08-07 09:46 | NUR ---
Received report from scene shifter. [facility] still looking for placement.
[2019-08-07] MEDS ORDERED: MAGNESIUM OXIDE 400 MG TAB PO SCH (10:00)
[2019-08-07 10:12] LABS: PROTHROMBIN TIME 9.4 secs (10.8-13.4)
--- NOTE | 2019-08-07 11:04 | NUR ---
CONTACTED ELLIOTT JOHNSON AT [phone], ABLE TO SPEAK TO EFREM (INDUSTRIAL MAINTENANCE ELECTRICIAN). SHE STATED MANDI MARADIAGA (INTAKE) EXT 201 IS IN THE MEETING AND WILL NOT BE OUT UNTIL 4640. CONTACTED CAROLYN GARCIA AT [phone], ABLE TO SPEAK TO JASMIN (INTAKE). PROVIDED ME WITH FAX NUMBER [phone] TO SEND REFERRAL. REFERRAL SENT TO THE FAX NUMBER PROVIDED. CONTACTED MARY BURKS AT [phone], PER INDUSTRIAL MAINTENANCE ELECTRICIAN ADMISSIONS NUMBER IS [phone]. NO ANSWER. LEFT MESSAGE. CM TO FOLLOW UP.
--- NOTE | 2019-08-07 11:06 | NUR ---
ADMINISTERED MED PER MD ORDER, PATIENT TOLERATED WELL. MED EDUCATION PROVIDED TO PATIENT AND PATIENT VERBALIZED UNDERSTANDING. PATIENT AWAKE AND WATCHING TV ON BED AT THIS TIME. NO SIGNS OF DISTRESS NOTED. SAFETY MEASURES IN PLACE. BED IN LOW POSITION AND CALL LIGHT WITHIN REACH. INSTRUCTED PATIENT TO USE THE CALL LIGHT FOR ANY ASSISTANCE AND PATIENT WAS AWARE.
--- NOTE | 2019-08-07 13:07 | NUR ---
Called the following facilities: [facility] Cate still on wait list. No female bed [facility] s/w Timothy. Patient has been declined at their facility. Unable to safely manage patient [facility] s/w Vineet no beds [facility] s/w Kojo no beds [facility] s/w Luli, joyce fax for review [facility] Katia no beds
--- NOTE | 2019-08-07 13:16 | NUR ---
[facility] s/w Pradip no beds [facility]/lu[facility], not able to accommodate patient
--- NOTE | 2019-08-07 13:54 | NUR ---
ADMINISTERED MED PER MD ORDER, PATIENT TOLERATED WELL. MED EDUCATION PROVIDED TO PATIENT AND PATIENT VERBALIZED UNDERSTANDING. PATIENT IS RESTING ON BED AT THIS TIME. NO SIGNS OF DISTRESS NOTED. SAFETY MEASURES IN PLACE. BED IN LOW POSITION AND CALL LIGHT WITHIN REACH.
--- NOTE | 2019-08-07 14:12 | NUR ---
PATIENT AWAKE AND TALKING TO FAMILY MEMBERS BY BEDSIDE. NO SIGNS OF DISTRESS NOTED.
--- NOTE | 2019-08-07 15:45 | NUR ---
PATIENT AWAKE AND WATCHING TV ON BED. DENIED PAIN, SOB, AND DIZZINESS. NO SIGNS OF DISTRESS NOTED. SAFETY MEASURES IN PLACE. BED IN LOW POSITION AND CALL LIGHT WITHIN REACH.
[2019-08-07 16:00] VITALS: BP 122/62
[2019-08-07] MEDS ORDERED: glipiZIDE 5 MG TAB PO SCH (16:38)
[2019-08-07] MEDS: FERROUS SULFATE 325 MG TABEC PO SCH (17:02)
--- NOTE | 2019-08-07 17:02 | NUR ---
ADMINISTERED MEDS PER MD ORDER, PATIENT TOLERATED WELL. MED EDUCATION PROVIDED TO PATIENT AND PATIENT VERBALIZED UNDERSTANDING. PATIENT IS RESTING ON BED AT THIS TIME. NO SIGNS OF DISTRESS NOTED. SAFETY MEASURES IN PLACE. BED IN LOW POSITION AND CALL LIGHT WITHIN REACH. INSTRUCTED PATIENT TO USE THE CALL LIGHT FOR ANY ASSISTANCE AND PATIENT WAS AWARE.
--- NOTE | 2019-08-07 18:25 | NUR ---
PATIENT SAID "I DON'T LIKE THE MEATLOAF, CAN YOU GET ME SOMETHING ELSE FOR DINNER?" CALLED [facility] AND THEY HAVE CHICKEN SALAD AND TURKEY SANDWICH, PATIENT REQUESTS FOR TURKEY SANDWICH. [facility] WILL SEND TO PATIENT'S ROOM. PATIENT IS AWAKE AND TALKING TO SISTER BY BEDSIDE. NO SIGNS OF DISTRESS NOTED. SAFETY MEASURES IN PLACE. BED IN LOW POSITION AND CALL LIGHT WITHIN REACH. INSTRUCTED PATIENT TO USE THE CALL LIGHT FOR ANY ASSISTANCE AND PATIENT WAS AWARE.
--- NOTE | 2019-08-07 19:25 | NUR ---
ENDORSED PATIENT AT BEDSIDE TO TURRET PRESS OPERATOR NURSE FOR CONTINUITY OF CARE. PATIENT AWAKE AND TALKING TO VISITORS BY BEDSIDE. NO SIGNS OF DISTRESS NOTED. PATIENT IS IN STABLE CONDITION.
--- NOTE | 2019-08-07 19:26 | NUR ---
RECEIVED REPORT FROM AM SHIFT FOR CONTINUITY OF CARE. PT IN STABLE CONDITION. RESPIRATIONS EVEN AND UNLABORED. IV INTACT AND PATENT. SAFETY MEASURES IN PLACE. BED IN LOW POSITION. CALL LIGHT AT BEDSIDE. WILL CONTINUE TO MONITOR.
--- NOTE | 2019-08-07 21:23 | NUR ---
Still no vacancies at any of the contracted facilities. Will endorse to casino shift manager for further placement
[2019-08-07] MEDS: traZODone 50 MG TAB PO SCH (21:31)
[2019-08-07] MEDS: AMITRIPTYLINE 25 MG TAB PO SCH (21:31)
[2019-08-07] MEDS: oxyCODONE/APAP 5/325 MG 1 TAB TAB PO PRN (21:32)
--- NOTE | 2019-08-07 21:41 | NUR ---
GIVEN DUE MEDS; CHECKED PLATELET LEVEL 282 WNL; EXPLAINED SIDE EFFECTS OF MEDICATIONS; PT VERBALIZED UNDERSTANDING
--- NOTE | 2019-08-07 23:00 | NUR ---
PT SLEEPING SUPINE COMFORTABLY; NO COMPLAINTS AT THIS TIME; WILL CONTINUE TO MONITOR
[2019-08-08] VITALS: BP 110/70
--- NOTE | 2019-08-08 00:05 | NUR ---
PT SLEEPING SUPINE COMFORTABLY; NO COMPLAINTS AT THIS TIME; WILL CONTINUE TO MONITOR
[2019-08-08 04:00] VITALS: BP 117/70
[2019-08-08] MEDS ORDERED: glipiZIDE 5 MG TAB PO SCH (06:30)
[2019-08-08] MEDS ORDERED: GLIP5TAB13 PO (06:43)
[2019-08-08] MEDS ORDERED: ELA25 PO (06:43)
[2019-08-08] MEDS ORDERED: ESCI20TA47 PO (06:43)
[2019-08-08] MEDS ORDERED: GABA-638 PO (06:43)
[2019-08-08] MEDS ORDERED: TRAZ-466 PO (06:43)
[2019-08-08] MEDS ORDERED: METF500T PO (06:43)
[2019-08-08] MEDS ORDERED: FER325 PO (06:43)
[2019-08-08] MEDS: BLOOD GLUCOSE MONITORING 1 DEV DEV FS SCH ×2 (06:45→12:19)
--- NOTE | 2019-08-08 06:45 | NUR ---
BLOOD GLUCOSE IS 125 NO INSULIN COVERAGE
[2019-08-08] MEDS: LEVOTHYROXINE 0.1 MG TAB PO SCH (07:17)
--- NOTE | 2019-08-08 07:17 | NUR ---
ADMINISTERED MEDICATIONS TO PATIENT; EXPLAINED SIDE EFFECTS. PT VERBALIZED UNDERSTANDING
--- NOTE | 2019-08-08 07:21 | NUR ---
PT SLEEPING; EASILY AROUSABLE BY NAME, PT IN STABLE CONDITION WILL ENDORSE TO NEXT SHIFT.
--- NOTE | 2019-08-08 07:21 | NUR ---
RECEIVED REPORT FROM AM SHIFT FOR CONTINUITY OF CARE. PT IN STABLE CONDITION. RESPIRATIONS EVEN AND UNLABORED. IV INTACT AND PATENT. SAFETY MEASURES IN PLACE. BED IN LOW POSITION. CALL LIGHT AT BEDSIDE. WILL CONTINUE TO MONITOR. Addendum: 08/08/19 at 0807 by Linh Bowers RN DELETE NOTE WRONG NOTE
--- NOTE | 2019-08-08 07:22 | NUR ---
RECEIVED BEDSIDE REPORT FROM CONTEMPORARY OR MODERN DANCER NURSE FOR CONTINUITY OF CARE. PATIENT IS AWAKE AND RESTING ON BED AT THIS TIME. PATIENT IS AAOX4, SPEAKS WELSH, ABLE TO FOLLOW SIMPLE COMMANDS AND MAKE NEEDS KNOWN. RESPIRATION EVEN AND UNLABORED ON RA. DENIED PAIN, DIZZINESS AND SOB. NO SIGNS OF DISTRESS NOTED. IV INTACT AND CLEAN,SL. PATIENT IS CONTINENT AND ABLE TO AMBULATE. SKIN CLEAN AND DRY. INFORMED PATIENT THAT SHE WILL BE DISCHARGE TODAY FROM THE HOSPITAL. PATIENT STATED "I WILL CALL MY SISTER TO PICK ME UP. I WILL LET YOU KNOW THE TIME." DISCUSSED PLAN OF CARE WITH PATIENT AND PATIENT VERBALIZED UNDERSTANDING. SAFETY MEASURES IN PLACE. BED IN LOW POSITION AND CALL LIGHT WITHIN REACH. INSTRUCTED PATIENT TO USE THE CALL LIGHT FOR ANY ASSISTANCE AND PATIENT WAS AWARE.
[2019-08-08 07:57] LABS: ALBUMIN 2.5 g/dL (3.4-5.0)
[2019-08-08 08:00] VITALS: BP 113/61
--- NOTE | 2019-08-08 08:00 | NUR ---
PATIENT DOES NOT LIKE HER BREAKFAST TRAY AND REQUEST FOR CHEERIO CEREAL. PAGED F[facility] AND PER FNS THAT THEY WILL SEND IT TO PATIENT'S ROOM. INFORMED PATIENT AND PATIENT WAS AWARE THAT CEREAL WILL BE DELIVER TO HER ROOM. PATIENT IS AWAKE AND WATCHING TV AT THIS TIME. NO SIGNS OF DISTRESS NOTED. SAFETY MEASURES IN PLACE. BED IN LOW POSITION AND CALL LIGHT WITHIN REACH.
[2019-08-08 08:01] LABS: PROTHROMBIN TIME 9.7 secs (10.8-13.4)
[2019-08-08 08:07] LABS: FOLIC ACID 5.1 ng/mL (>3.0)
[2019-08-08] MEDS: FERROUS SULFATE 325 MG TABEC PO SCH (08:12)
[2019-08-08] MEDS: metFORMIN 500 MG TAB PO SCH (08:12)
--- NOTE | 2019-08-08 08:12 | NUR ---
ADMINISTERED MEDS PER MD ORDER, PATIENT TOLERATED WELL. MEDS EDUCATION PROVIDED TO PATIENT AND PATIENT VERBALIZED UNDERSTANDING. PATIENT IS EATING CEREAL AT THIS TIME. NO SIGNS OF DISTRESS NOTED. SAFETY MEASURES IN PLACE. BED IN LOW POSITION AND CALL LIGHT WITHIN REACH. INSTRUCTED PATIENT TO USE THE CALL LIGHT FOR ANY ASSISTANCE AND PATIENT WAS AWARE.
[2019-08-08 08:22] LABS: ALBUMIN 2.5 g/dL (3.4-5.0); ANION GAP 11.7 (8-16); CARBON DIOXIDE 27.3 mmol/L (21-32); CREATININE 0.9 mg/dL (0.6-1.3); MAGNESIUM 1.5 mg/dL (1.8-2.4); PHOSPHORUS 4.7 mg/dL (2.5-4.9); TOTAL BILIRUBIN 0.2 mg/dL (0.0-1.0)
[2019-08-08 08:57] LABS: BASOPHILS % (AUTO) 0.6 % (0.0-2.0); EOSINOPHILS # (AUTO) 0.1 K/uL (0-0.4); EOSINOPHILS % (AUTO) 1.4 % (0.0-4.0); LYMPHOCYTES # (AUTO) 2.4 K/uL (2.5-16.5); LYMPHOCYTES % (AUTO) 29.5 % (20.5-51.1); MEAN CORPUSCULAR HEMOGLOBIN 28 pg (27-31); MEAN CORPUSCULAR HGB CONC 32 g/dL (33-37); MEAN CORPUSCULAR VOLUME 87.7 fL (80-94); MONOCYTES # (AUTO) 0.5 K/uL (0.8-1.0); MONOCYTES % (AUTO) 6.5 % (1.7-9.3); PLATELET COUNT (AUTO) 288 K/uL (140-450); RED BLOOD CELL COUNT(AUTO) 3.87 MIL/uL (4.20-5.40); RED CELL DISTRIBUTION WIDTH 14.5 % (11.6-13.7); WHITE BLOOD COUNT (AUTO) 8.1 K/uL (4.8-10.8)
[2019-08-08] MEDS ORDERED: MAG SULF 2000 MG/WATER PREMIX 50 ML IV SCH (09:00)
--- NOTE | 2019-08-08 09:05 | NUR ---
CALLED SECURITY AND RETURNED ALL PATIENT'S BELONGINGS. PATIENT VERIFIED AND RECEIVED ALL HER BELONGINGS.
[2019-08-08] MEDS: INSULIN LANTUS 100 UNITS/ML 10 ML VIAL SUBQ SCH (09:31)
[2019-08-08] MEDS: ESCITALOPRAM 20 MG TAB PO SCH (09:32)
[2019-08-08] MEDS: GABAPENTIN 300 MG CAP PO SCH ×2 (09:32→13:17)
[2019-08-08] MEDS: oxyCODONE/APAP 5/325 MG 1 TAB TAB PO PRN (09:34)
--- NOTE | 2019-08-08 09:34 | NUR ---
ADMINISTERED SCHEDULED MEDS PER MD ORDER, PATIENT TOLERATED WELL. MEDS EDUCATION PROVIDED TO PATIENT AND PATIENT VERBALIZED UNDERSTANDING. PATIENT COMPLAINED SHE HAS 6/10 PAIN ON HER BOTH LEGS, SHE FEELS RESTLESS AND SHARP PAIN AND HEAVINESS. ADMINISTERED PRN PAIN MED PER MD ORDER, PATIENT TOLERATED WELL. MED EDUCATION PROVIDED TO PATIENT AND PATIENT VERBALIZED UNDERSTANDING. PATIENT IS RESTING ON BED AT THIS TIME. SAFETY MEASURES IN PLACE. BED IN LOW POSITION AND CALL LIGHT WITHIN REACH. INSTRUCTED PATIENT TO USE THE CALL LIGHT FOR ANY ASSISTANCE AND PATIENT WAS AWARE.
--- NOTE | 2019-08-08 09:45 | NUR ---
IV INFILTRATED, DC IV AND CANNULA INTACT, NO BLEEDING AT IV SITE. RESTARTED IV ON R HAND 24G, PATIENT TOLERATED WELL. PATIENT SAID "MY SISTER WILL BE ABLE TO PICK ME UP AFTER 1PM TODAY." CONTINUED INFUSING MAG AT PER MD ORDER, PATIENT AWAKE AND RESTING ON BED AT THIS TIME. NO SIGNS OF DISTRES NOTED. SAFETY MEASURES IN PLACE.
[2019-08-08 10:04] LABS: BILIRUBIN,DIRECT 0.1 mg/dL (0.0-0.3); TOTAL BILIRUBIN 0.2 mg/dL (0.0-1.0)
--- NOTE | 2019-08-08 11:25 | NUR ---
PATIENT IS RESTING ON BED AT THIS TIME. SAFETY MEASURES IN PLACE. BED IN LOW POSITION AND CALL LIGHT WITHIN REACH. INSTRUCTED PATIENT TO USE THE CALL LIGHT FOR ANY ASSISTANCE AND PATIENT WAS AWARE.
--- NOTE | 2019-08-08 12:40 | NUR ---
PATIENT IS AWAKE AND TALKING TO VISITORS BY BEDSIDE. NO SIGNS OF DISTRESS NOTED. AWAITING FOR PATIENT'S SISTER EMA TO ARRIVE FOR DISCHARGE. SAFETY MEASURES IN PLACE. BED IN LOW POSITION AND CALL LIGHT WITHIN REACH. INSTRUCTED PATIENT TO USE THE CALL LIGHT FOR ANY ASSISTANCE AND PATIENT WAS AWARE.
--- NOTE | 2019-08-08 13:17 | NUR ---
ADMINISTERED SCHEDULED MEDS PER MD ORDER, PATIENT TOLERATED WELL. MEDS EDUCATION PROVIDED TO PATIENT AND PATIENT VERBALIZED UNDERSTANDING. PATIENT IS WATCHING TV AND RESTING ON BED AT THIS TIME. SAFETY MEASURES IN PLACE. BED IN LOW POSITION AND CALL LIGHT WITHIN REACH. INSTRUCTED PATIENT TO USE THE CALL LIGHT FOR ANY ASSISTANCE AND PATIENT WAS AWARE.
--- NOTE | 2019-08-08 14:05 | NUR ---
DR DIOR IS TALKING TO PATIENT AND SISTER EMA AT BEDSIDE. NO SIGNS OF DISTRESS NOTED.
--- NOTE | 2019-08-08 14:20 | NUR ---
PATIENT IS CHANGING INTO HER OWN CLOTHES AT THIS TIME. NO SIGNS OF DISTRESS NOTED.
--- NOTE | 2019-08-08 14:25 | NUR ---
DISCHARGE INSTRUCTION PROVIDED TO PATIENT AT BEDSIDE. EDUCATED PATIENT ON MD FOLLOW UP, SEEK MEDICAL HELP IN CASE OF MEDICAL EMERGENCY, MEDICATION REGIMEN, SIDE EFFECTS, DISEASE MANAGEMENT AND DIET. ANSWERED ALL PATIENT'S QUESTIONS. PATIENT VERBALIZED UNDERSTANDING. REMOVED ALL ARM BANDS AND IV. IV CANNULA INTACT AND NO BLEEDING AT IV SITE. PATIENT WAS AWARE THAT PRESCRIPTION HAS SENT TO HER PREFERRED PHARMACY. PATIENT REFUSED FLU VACCINE AND STATED " I HAD IT BEFORE. I DON'T WANT IT." VACCINE EDUCATION PROVIDED TO PATIENT AND PATIENT SAID OK, BUT REFUSED TO BE VACCINATED. PROVIDED PRINT OUT DISCHARGE DOCUMENT. PATIENT AND SISTER EMA CHECKED ALL THE CABINETS AND TOOK ALL PATIENT'S BELONGINGS HOME. BEEF GRINDER WHEELCHAIR PATIENT TO THE FRONT LOBBY. PATIENT IS GOING TO BE DISCHARGE AT THIS TIME AND ACCOMPANY BY SISTER EMA. PATIENT IS IN STABLE CONDITION.
== END 2019-08-08 14:25 | disposition home or self-care (01) | DRG 817 ==
LOC: MED 19:40 → MIC 07-31 08:02 → MTU 08-01 14:49
PROVIDERS: ADMIT General Practice; ATTEND General Practice
DX: T39.1X2A Poisoning by 4-Aminophenol derivatives, intentional self-harm, initial encounter (principal); J96.01 Acute respiratory failure with hypoxia; N17.0 Acute kidney failure with tubular necrosis; G92 Toxic encephalopathy; E66.01 Morbid (severe) obesity due to excess calories; R65.10 Systemic inflammatory response syndrome (SIRS) of non-infectious origin without acute organ dysfunction; E11.40 Type 2 diabetes mellitus with diabetic neuropathy, unspecified; E11.65 Type 2 diabetes mellitus with hyperglycemia; R45.851 Suicidal ideations; K76.0 Fatty (change of) liver, not elsewhere classified; E87.1 Hypo-osmolality and hyponatremia; Z71.3 Dietary counseling and surveillance; E03.9 Hypothyroidism, unspecified; E83.42 Hypomagnesemia; T46.5X2A Poisoning by other antihypertensive drugs, intentional self-harm, initial encounter; K80.20 Calculus of gallbladder without cholecystitis without obstruction; F32.9 Major depressive disorder, single episode, unspecified; F41.9 Anxiety disorder, unspecified; G47.00 Insomnia, unspecified; Z68.44 Body mass index [BMI] 60.0-69.9, adult; Z79.899 Other long term (current) drug therapy; Z83.3 Family history of diabetes mellitus; Z82.49 Family history of ischemic heart disease and other diseases of the circulatory system; Y92.89 Other specified places as the place of occurrence of the external cause
CPT/HCPCS: 36415; 70450; 71045; 72110; 76705; 80048; 80053; 80076; 80305; 81001; 81025; 82140; 82150; 82550; 82553; 82607; 82728; 82746; 82803; 82948; 83036; 83540; 83605; 83690; 83735; 83880; 84100; 84436; 84439; 84443; 84479; 84484; 84702; 85025; 85045; 85610; 85730; 87081; 93005; 93925; 93970; 96361; 96374; 99291; G0480; G0482; J0132; J1644; J1815; J2001; J2270; J3475; J3480; J7030; J7042; J7060; J7608; Q0092